=== PATIENT | male | born 1970 | race Caucasian/White ===

== ENCOUNTER 2021-06-27 10:23 | Outpatient (REF) | payer OTHER, SELFPAY ==
[2021-06-27 11:42] LABS: MANUAL DIFF FLAG NO
[2021-06-27 11:49] LABS: Basophils Percent Auto 0.7 % (0-2); Eosinophils Absolute Auto 0.1 X10*3/uL (0.0-0.4); Eosinophils Percent Auto 2.5 % (0-4); Hematocrit 43.4 % (42-52); Hemoglobin 14.2 g/dl (14.0-18.0); Imm Gran Abs Auto 0.01 X10*3/uL (0.00-0.03); Imm Gran Pct Auto 0.2 % (0.0-0.4); Lymphocytes Absolute Auto 1.1 X10*3/uL (1.2-4.9); Lymphocytes Percent Auto 28.4 % (20-40); Mean Corpuscular HGB Conc 32.7 g/dl (31.0-36.0); Mean Corpuscular Hemoglobin 28.9 pg (27.0-33.0); Mean Corpuscular Volume 88.2 fL (80-98); Mean Platelet Volume 9.8 fL (9.4-12.4); Monocytes Absolute Auto 0.3 X10*3/uL (0.1-1.2); Monocytes Percent Auto 6.2 % (2-11); Neutrophils Absolute Auto 2.5 X10*3/uL (2.0-8.3); Platelet Count 224 X10*3/uL (160-400); Red Blood Count 4.92 X10*6/uL (4.60-5.80)
[2021-06-27 11:56] LABS: Estimated Average Glucose 117 mg/dL; Hemoglobin A1c % 5.7 %
[2021-06-27 12:13] LABS: Alanine Aminotransferase 21 U/L (0-40); Albumin Level 4.2 g/dL (3.5-5.0); Alkaline Phosphatase 59 U/L (39-117); Anion Gap 11 (12-20); Aspartate Amino Transferase 19 U/L (5-37); Bilirubin Total 0.5 mg/dL (0.0-1.0); Blood Urea Nitrogen 9 mg/dL (9-16); C Reactive Protein 0.03 mg/dL (< or = 0.50); Carbon Dioxide 26 mmol/L (22-29); Chloride 107 mmol/L (96-108); Cholesterol 211 mg/dL; Estimated Glomerular Filt Rate > 60; Glucose Random 107 mg/dL (60-115); HDL Cholesterol 46 mg/dL; LDL Cholesterol Calculated 145 mg/dl; Potassium 4.5 mmol/L (3.3-5.1); Sodium 139 mmol/L (135-145); Total Protein 6.6 g/dL (6.5-8.0); Triglycerides 100 mg/dL
[2021-06-27 12:21] LABS: Free T4 (Free Thyroxine) 0.94 ng/dL (0.71-1.85); Prostate Specific Antigen Scr 0.51 ng/mL (<0.05-4.0); Thyroid Stimulating Hormone 2.07 uIU/mL (0.32-4.0)
[2021-06-27 12:41] LABS: Erythrocyte Sedimentation Rate 5 MM/HR (0-15)
[2021-06-27 13:17] LABS: Folate 12.4 ng/mL (> or = 4.0); Vitamin B12 436 pg/mL (200-900)
== END 2021-06-27 10:24 | disposition home or self-care (01) ==
LOC: HO.LAB 10:23
PROVIDERS: PCP Internal Medicine; Visit Provider Internal Medicine
DX: Z12.5 Encounter for screening for malignant neoplasm of prostate (principal); E78.00 Pure hypercholesterolemia, unspecified; K21.9 Gastro-esophageal reflux disease without esophagitis
CPT/HCPCS: 36415; 80053; 80061; 82607; 82746; 83036; 84153; 84439; 84443; 85025; 85652; 86140

== ENCOUNTER 2021-08-10 16:16 | Outpatient (REF) | payer OTHER, SELFPAY ==
[2021-08-10 17:52] LABS: MANUAL DIFF FLAG NO
[2021-08-10 18:00] LABS: Basophils Percent Auto 0.8 % (0-2); Eosinophils Absolute Auto 0.1 X10*3/uL (0.0-0.4); Eosinophils Percent Auto 1.5 % (0-4); Hemoglobin 14.6 g/dl (14.0-18.0); Imm Gran Abs Auto 0.01 X10*3/uL (0.00-0.03); Imm Gran Pct Auto 0.2 % (0.0-0.4); Lymphocytes Absolute Auto 1.2 X10*3/uL (1.2-4.9); Lymphocytes Percent Auto 24.3 % (20-40); Mean Corpuscular Hemoglobin 29.6 pg (27.0-33.0); Mean Corpuscular Volume 87.2 fL (80-98); Monocytes Absolute Auto 0.3 X10*3/uL (0.1-1.2); Monocytes Percent Auto 7.2 % (2-11); Neutrophils Absolute Auto 3.1 X10*3/uL (2.0-8.3); Platelet Count 237 X10*3/uL (160-400); Red Blood Count 4.93 X10*6/uL (4.60-5.80); Red Cell Distribution Width 12.3 % (11.0-16.0); White Blood Count 4.7 X10*3/uL (4.8-10.8)
[2021-08-10 18:12] LABS: Alanine Aminotransferase 22 U/L (0-40); Albumin Level 4.6 g/dL (3.5-5.0); Alkaline Phosphatase 69 U/L (39-117); Anion Gap 12 (12-20); Aspartate Amino Transferase 18 U/L (5-37); Bilirubin Total 0.6 mg/dL (0.0-1.0); Blood Urea Nitrogen 13 mg/dL (9-16); Calcium 10.1 mg/dL (8.4-10.2); Carbon Dioxide 29 mmol/L (22-29); Chloride 103 mmol/L (96-108); Estimated Glomerular Filt Rate > 60; Glucose Random 110 mg/dL (60-115); Potassium 4.6 mmol/L (3.3-5.1); Sodium 139 mmol/L (135-145); Total Protein 7.3 g/dL (6.5-8.0)
== END 2021-08-10 16:17 | disposition home or self-care (01) ==
LOC: HO.LAB 16:16
PROVIDERS: PCP Internal Medicine; Visit Provider Internal Medicine
DX: B35.6 Tinea cruris (principal)
CPT/HCPCS: 36415; 80053; 85025

== ENCOUNTER 2021-11-17 10:15 | Day surgery (SDC) | payer OTHER, SELFPAY ==
--- NOTE | 2021-11-15 13:30 | P.CONAN_ITS ---
Documented by User: Regla Domínguez NP 11/15/21 13:31 HPI - Anesthesia Eval Consult details Narrative: 51yo M for Colonoscopy PMFSH Active Problems Active Problems: All Active Problems (Updated 08/22/21 @ 09:55 by Lala Parada MD) Scrotal rash (Acute) Plantar wart of left foot (Acute) Eczema (Acute) Generalized anxiety disorder (Acute) Tinea cruris (Acute) Hip pain, right (Acute) Colon cancer screening (Acute) Allergic rhinitis (Acute) GERD (gastroesophageal reflux disease) (Acute) Patellofemoral arthritis (Acute) Insomnia (Acute) Hypercholesterolemia (Acute) Past Medical History Medical History (Updated 11/17/21 @ 10:52 by Brielle Miller MD) Allergic rhinitis Arrhythmia Bradycardia GERD (gastroesophageal reflux disease) Hypercholesterolemia Insomnia Irritable bowel syndrome Mitral valve prolapse Reactive airway disease Tinnitus Vitamin D deficiency Family History Family History Father Skin cancer Mother No problems noted. Brother Bipolar disorder Brother Substance abuse Sister No problems noted. Sister No problems noted. Paternal Grandmother Colon cancer Paternal Aunt Colon cancer Paternal Grandfather Stomach cancer Social History Social History Housing: Apartment Alcohol intake: current Alcohol intake frequency: holidays/special occasions only Patient Tobacco Use Status: Never used Tobacco e-Cigarette/Vaping Use: Never Used Second Hand Smoke Exposure: No Use of substances other than those prescribed or required for medical reasons: No Are you DNR?: No Advance Directives: No Advance Directives Information Provided: Yes Recently lost weight without trying: No Nutrition Risks: No Nutritional Risk service: No Current occupational status: employed Meds Allergies Allergy/AdvReac Type Severity Reaction Status Date / Time penicillin V Allergy Severe Rash Verified 08/16/21 12:27 amoxicillin [AMOXICILLIN] Allergy Unknown RASH Verified 08/16/21 12:27 erythromycin base Allergy Unknown JOINTS PAIN Verified 08/16/21 12:27 [ERYTHROMYCIN BASE] Erythromycin Allergy Severe Rash Uncoded 06/19/21 18:06 Home Medications Medication Instructions Recorded Confirmed Last Taken Type cetirizine 10 mg tablet (Zyrtec) 10 mg PO DAILY PRN 06/19/21 06/19/21 Unknown History cholecalciferol (vitamin D3) 50 50 mcg PO DAILY 06/19/21 06/19/21 Unknown History mcg (2,000 unit) capsule famotidine 20 mg tablet (Acid 20 mg PO BEDTIME 06/19/21 06/19/21 Unknown History Counter Supervisor (famotidine)) fluticasone propionate 50 2 spray INTRANASAL DAILY 06/19/21 06/19/21 Unknown History mcg/actuation nasal spray,suspension melatonin 3 mg capsule 3 mg PO BEDTIME PRN 06/19/21 06/19/21 Unknown History multivitamin 1 tab PO DAILY 06/19/21 06/19/21 Unknown History Exam Exam Date and Time: November 15, 2021 1330 Pertinent Lab Results Pertinent Lab Results: Laboratory Tests 08/10/21 08/10/21 16:36 16:36 WBC 4.7 L Hgb 14.6 Hct 43.0 Plt Count 237 Sodium 139 Potassium 4.6 Chloride 103 Carbon Dioxide 29 BUN 13 Creatinine 0.85 Assessment and Plan Assessment Anesthesia Assessment: Chart Reviewed Documented by User: Brielle Miller MD 11/17/21 10:53 [facility] Active Problems Active Problems: All Active Problems (Updated 08/22/21 @ 09:55 by Lala Parada MD) Scrotal rash (Acute) Plantar wart of left foot (Acute) Eczema (Acute) Generalized anxiety disorder (Acute) Tinea cruris (Acute) Hip pain, right (Acute) Colon cancer screening (Acute) Allergic rhinitis (Acute) GERD (gastroesophageal reflux disease) (Acute) Patellofemoral arthritis (Acute) Insomnia (Acute) Hypercholesterolemia (Acute) 'Reactive airways disease'- no formal diagnosis of asthma. No inhalers Past Medical History Medical History (Updated 11/17/21 @ 10:52 by Brielle Miller MD) Allergic rhinitis Arrhythmia Bradycardia GERD (gastroesophageal reflux disease) Hypercholesterolemia Insomnia Irritable bowel syndrome Mitral valve prolapse Reactive airway disease Tinnitus Vitamin D deficiency Family History Family History Father Skin cancer Mother No problems noted. Brother Bipolar disorder Brother Substance abuse Sister No problems noted. Sister No problems noted. Paternal Grandmother Colon cancer Paternal Aunt Colon cancer Paternal Grandfather Stomach cancer Family history of problems with anesthesia: No Surgical History History of Problems with Anesthesia: No Social History Social History Housing: Apartment Alcohol intake: current Alcohol intake frequency: holidays/special occasions only Patient Tobacco Use Status: Never used Tobacco e-Cigarette/Vaping Use: Never Used Second Hand Smoke Exposure: No Use of substances other than those prescribed or required for medical reasons: No Are you DNR?: No Advance Directives: No Advance Directives Information Provided: Yes Recently lost weight without trying: No Nutrition Risks: No Nutritional Risk service: No Current occupational status: employed Meds Allergies Allergy/AdvReac Type Severity Reaction Status Date / Time penicillin V Allergy Severe Rash Verified 08/16/21 12:27 amoxicillin [AMOXICILLIN] Allergy Unknown RASH Verified 08/16/21 12:27 erythromycin base Allergy Unknown JOINTS PAIN Verified 08/16/21 12:27 [ERYTHROMYCIN BASE] Erythromycin Allergy Severe Rash Uncoded 06/19/21 18:06 Home Medications Medication Instructions Recorded Confirmed Last Taken Type cetirizine 10 mg tablet (Zyrtec) 10 mg PO DAILY PRN 06/19/21 06/19/21 Unknown History cholecalciferol (vitamin D3) 50 50 mcg PO DAILY 06/19/21 06/19/21 Unknown History mcg (2,000 unit) capsule famotidine 20 mg tablet (Acid 20 mg PO BEDTIME 06/19/21 06/19/21 Unknown History Counter Supervisor (famotidine)) fluticasone propionate 50 2 spray INTRANASAL DAILY 06/19/21 06/19/21 Unknown History mcg/actuation nasal spray,suspension melatonin 3 mg capsule 3 mg PO BEDTIME PRN 06/19/21 06/19/21 Unknown History multivitamin 1 tab PO DAILY 06/19/21 06/19/21 Unknown History Exam Height,Weight and Vital Signs: Height 6 ft Weight 72.575 kg Vital Signs Temp Pulse Resp BP Pulse Ox 11/17/21 10:37 99.3 F 125 H 16 154/102 H 99 Airway Mallampati Class: I TM Dist: >3cm Neck ROM: Full Loose/Missing/Broken Teeth: No Heart: RRR Lungs: CTAB Assessment and Plan Assessment Anesthesia Assessment: Anesthesia Plan Discussed Final Anesthetic Review Family History of Problems with Anesthesia: No History of Problems with Anesthesia: No NPO: Yes ASA Class: II Final Preanesthetic Review: No Changes in Pt Med Stat, Meds/Allgs Chart Reviewed, Consent Obtained/Reviewed and Anes Risks/Benef Reviewed Patient Risk: Intermediate Procedure Risk: Low Assessment/Block/Sedation in SS: Assess/Block/Sedation-SS Anesthetic Plan Anesthetic Plan: MAC: Disposition: Standard PACU
[2021-11-17 10:26] VITALS: BMI 21.7
[2021-11-17 10:37] VITALS: BP 154/102; PULSE 125; RESP 16; TEMP 37.4; O2SAT 99
--- NOTE | 2021-11-17 10:37 | MHC.SHP ---
Pre-Procedural Eval Section A Date of Service: 11/17/21 Section B Chief Complaint: screening Details of Present Illness: see H&P Relevant Family History (Specify if Yes): No Relevant Social History: None Present Medications: see Short Stay Collaborative assessment Medical History: No relevant PMH History of Previous Operations: No relevant previous surgery Allergies: Allergies Allergy/AdvReac Type Severity Reaction Status Date / Time penicillin V Allergy Severe Rash Verified 08/16/21 12:27 amoxicillin [AMOXICILLIN] Allergy Unknown RASH Verified 08/16/21 12:27 erythromycin base Allergy Unknown JOINTS PAIN Verified 08/16/21 12:27 [ERYTHROMYCIN BASE] Erythromycin Allergy Severe Rash Uncoded 06/19/21 18:06 Review of Systems Sugical H&P ROS: Negative: Constitution, Cardiovascular, Respiratory, Neurological, Psychiatric, Hem-Onc, Allergic/Immunologic, Gastrointestinal, Genitourinary, Musculoskeletal, Integumentary, Endocrine and Eyes/Ears/Nose/Throat Exam Surgical H&P Exam: Normal: HEENT, Normal: Heart, Normal: Lungs, Normal: Extremities, Normal: Abdomen, Normal: Skin and Normal: Neurological Plan Diagnosis/Plan: Unchanged I have reviewed the history and physical and performed a pertinent physical examination on my patient. No changes have occurred unless specified.
[2021-11-17] MEDS: Sodium Phosphate,Mono-Dibasic 133 ML ENEMA PR ×2 (10:49→11:01)
--- NOTE | 2021-11-17 10:57 | PC.NURSE ---
AURA 1ST FLEET ORDERED. LIQUID BROWN OUTPUT.
--- NOTE | 2021-11-17 11:04 | PC.NURSE ---
2ND FLEET ENEMA GIVEN AURA WELL. LEFT LATERAL SIDE. AWAITING FOR RESULTS. NO LONGER TAKES ANTIBIOTICS BECAUSE OF MITRAL VALVE PROLAPSE PER PATIENT
--- NOTE | 2021-11-17 11:08 | PC.NURSE ---
CLEAR OUTPUT RESULTS WITH SECOND FLEET ENEMA GIVEN.
[2021-11-17] MEDS: Lactated Ringers 1,000 ML 100 ML IVCONT (11:16)
[2021-11-17 11:50] VITALS: BP 92/57; PULSE 97; RESP 16; TEMP 36.2; O2SAT 98
--- NOTE | 2021-11-17 11:56 | PM.OP ---
Brief Operative Note Date of Service: 11/17/21 Pre-op diagnosis: screening, rectal pain Post-op diagnosis: same Procedure: colonosocopy Surgeon: Nicho Foss Anesthesia: MAC Was an Custom Furrier used for this Procedure?: No Estimated blood loss (mL): 2 Pathology: other (bxs ti and sigmoid) Condition: stable Disposition: PACU
--- NOTE | 2021-11-17 12:03 | OP_ITS ---
SURGEON: Nicho Foss MD INDICATIONS: Rectal pain and colon cancer screening. PREOPERATIVE DIAGNOSIS: POSTOPERATIVE DIAGNOSIS: PROCEDURE PERFORMED: Colonoscopy to the terminal ileum with biopsy. ESTIMATED BLOOD LOSS: COMPLICATIONS: ANESTHESIA: Monitored anesthesia care. ASSISTANTS: SPECIMENS: DESCRIPTION OF PROCEDURE: History and physical performed. The risks and benefits of the procedure were explained to the patient. Informed consent was obtained. The patient was placed in the left lateral decubitus position. A digital rectal exam was performed and was found to be normal. The Olympus pediatric video colonoscope was introduced into the rectum and advanced to the cecum without difficulty. The cecum was identified by transillumination, palpation, and identification of ileocecal valve. Examination was performed. Scope was removed. He tolerated the procedure well and was taken to recovery area in stable condition. FINDINGS: The terminal ileum was examined and appeared normal. The visualized colonic mucosa was within normal limits without evidence of masses or ulcers. No polyps were identified. Retroflexed examination was normal. Random biopsies were obtained from the terminal ileum and sigmoid. IMPRESSION: Normal colonoscopy. RECOMMENDATIONS: 1. Follow up the biopsy results. 2. Repeat colonoscopy is recommended in 10 years for average risk individuals. MD NEDA Cortés/SOY / [id number]
[2021-11-17 12:05] VITALS: BP 113/81; PULSE 91; RESP 17; TEMP 36.5; O2SAT 98
== END 2021-11-17 13:11 | disposition home or self-care (01) ==
PROVIDERS: PCP Internal Medicine; Visit Provider Internal Medicine Gastroenterology
PROC: 0DJD8ZZ Inspection of Lower Intestinal Tract, Via Natural or Artificial Opening Endoscopic (ICD-10-PCS; CPT 45378; principal; 2021-11-17 11:20)
DX: Z12.11 Encounter for screening for malignant neoplasm of colon (principal); K62.89 Other specified diseases of anus and rectum; K21.9 Gastro-esophageal reflux disease without esophagitis; D72.819 Decreased white blood cell count, unspecified; F41.9 Anxiety disorder, unspecified; Z79.899 Other long term (current) drug therapy
CPT/HCPCS: 45380; 88305

== ENCOUNTER 2023-08-09 10:04 | Outpatient (REF) | payer OTHER, SELFPAY ==
[2023-08-09 10:15] LABS: MANUAL DIFF FLAG NO
[2023-08-09 10:49] LABS: Eosinophils Absolute Auto 0.1 X10*3/uL (0.0-0.4); Eosinophils Percent Auto 3.4 % (0-4); Hematocrit 44.8 % (42.0-52.0); Imm Gran Abs Auto 0.01 X10*3/uL (0.00-0.03); Imm Gran Pct Auto 0.2 % (0.0-0.4); Lymphocytes Absolute Auto 1.5 X10*3/uL (1.2-4.9); Lymphocytes Percent Auto 36.6 % (20-40); Mean Corpuscular HGB Conc 33.5 g/dl (31.0-36.0); Mean Corpuscular Hemoglobin 30.3 pg (27.0-33.0); Mean Corpuscular Volume 90.5 fL (80.0-98.0); Mean Platelet Volume 9.8 fL (9.4-12.4); Monocytes Absolute Auto 0.3 X10*3/uL (0.1-1.2); Neutrophils Absolute Auto 2.1 x10*3/uL (2.0-8.3); Neutrophils Percent Auto 50.8 % (45-73); Platelet Count 235 X10*3/uL (160-400); Red Blood Count 4.95 X10*6/uL (4.60-5.80); Red Cell Distribution Width 12.4 % (11.0-16.0); White Blood Count 4.1 X10*3/uL (4.8-10.8)
[2023-08-09 10:59] LABS: Estimated Average Glucose 105 mg/dL; Hemoglobin A1c % 5.3 % (<6.0)
[2023-08-09 11:23] LABS: Alanine Aminotransferase 18 U/L (0-40); Albumin Level 4.2 g/dL (3.5-5.0); Alkaline Phosphatase 53 U/L (39-117); Anion Gap 8 (12-20); Aspartate Amino Transferase 18 U/L (5-37); Bilirubin Total 0.4 mg/dL (0.0-1.0); Blood Urea Nitrogen 15 mg/dL (9-16); Calcium 9.7 mg/dL (8.4-10.2); Carbon Dioxide 27 mmol/L (22-29); Chloride 110 mmol/L (96-108); Cholesterol 228 mg/dL (<200); Estimated Glomerular Filt Rate > 60; Glucose Random 104 mg/dL (60-115); HDL Cholesterol 50 mg/dL (>40); LDL Cholesterol Calculated 161 mg/dL (<100); Potassium 4.6 mmol/L (3.3-5.1); Sodium 140 mmol/L (135-145); Total Protein 6.8 g/dL (6.5-8.0); Triglycerides 88 mg/dL (<150)
[2023-08-09 11:46] LABS: Free T4 (Free Thyroxine) 0.82 ng/dL (0.71-1.85); Thyroid Stimulating Hormone 2.99 uIU/mL (0.32-4.0)
[2023-08-09 11:48] LABS: Folate 12.1 ng/mL (> or = 4.0); Vitamin B12 320 pg/mL (200-900)
== END 2023-08-09 10:05 | disposition home or self-care (01) ==
LOC: HO.LAB 10:04
PROVIDERS: PCP Internal Medicine; Visit Provider Internal Medicine
DX: Z12.5 Encounter for screening for malignant neoplasm of prostate (principal); E78.00 Pure hypercholesterolemia, unspecified; K21.9 Gastro-esophageal reflux disease without esophagitis; R73.02 Impaired glucose tolerance (oral)
CPT/HCPCS: 36415; 80053; 80061; 82607; 82746; 83036; 84153; 84439; 84443; 85025

== ENCOUNTER 2023-09-24 12:49 | Outpatient (AMB) | payer OTHER, SELFPAY ==
[2023-09-24 12:50] VITALS: BP 124/86; PULSE 91; O2SAT 97; BMI 22.6
--- NOTE | 2023-09-24 12:50 | MHC.PC.OV ---
Vital Signs 09/24/23 12:50 Height 6 ft Weight 167 lb BMI 22.6 BP 124/86 Blood Pressure Location Lt brachial Position Sitting Pulse 91 Pulse Source Pulse Oximeter Pulse Oximetry (%) 97 Oxygen Delivery Method Room Air Intake Visit Reasons: PE Intake Note: Patient is here today for a physical. Commission Associate Required: No Allergies penicillin V Allergy (Severe, Verified 09/24/23 12:50) Rash amoxicillin [AMOXICILLIN] Allergy (Unknown, Verified 09/24/23 12:50) RASH erythromycin base [ERYTHROMYCIN BASE] Allergy (Unknown, Verified 09/24/23 12:50) JOINTS PAIN Erythromycin Allergy (Severe, Uncoded 09/24/23 12:50) Rash Medication List - Last Reconciled 09/24/23 by Lala Parada MD cetirizine (Zyrtec) 10 mg PO DAILY PRN cholecalciferol (vitamin D3) 50 mcg PO BID cyclobenzaprine 10 mg PO DAILY PRN fluticasone propionate 50 mcg/actuation 2 sprays intranasal DAILY multivitamin 1 tab PO DAILY Tobacco use date assessed: 09/24/23 Dental Screening Dental Screen Date: 09/24/23 Did you have a dental visit in the last 12 months?: Yes Did you have a dental problem in the last 6 months where you did not have access to dental care?: No Was dental information given to patient?: Patient has dentist HPI PE HPI Details 53-year-old male with GERD hypercholesterolemia impaired glucose tolerance coming in for physical exam last seen in September 2022. Patient is up-to-date with colonoscopy. Patient was referred to the housekeeping assistant but I do not see any notes- does go for allergy shots started in December,. [facility] Medical History (Updated 09/14/22 @ 17:23 by Lala Parada MD) Bradycardia Arrhythmia Mitral valve prolapse Tinea cruris Hip pain, right Colon cancer screening Tinnitus Allergic rhinitis GERD (gastroesophageal reflux disease) Reactive airway disease Insomnia Vitamin D deficiency Irritable bowel syndrome Hypercholesterolemia Family History Father Skin cancer Mother No problems noted. Brother Bipolar disorder Brother Substance abuse Sister No problems noted. Sister No problems noted. Paternal Grandmother Colon cancer Paternal Aunt Colon cancer Paternal Grandfather Stomach cancer Social History (Updated 09/24/23 @ 13:29 by Lala Parada MD) Housing: Apartment Alcohol intake: current Alcohol intake frequency: holidays/special occasions only Patient Tobacco Use Status: Never used Tobacco e-Cigarette/Vaping Use: Never Used Second Hand Smoke Exposure: No service: No Current occupational status: employed Cognitive needs: No Hearing needs: No Vision needs: No Questionnaire PHQ-9 Over the last 2 weeks, how often have you been bothered by any of the following problems? 1. Little interest or pleasure in doing things: not at all 2. Feeling down, depressed, or hopeless: not at all 3. Trouble falling or staying asleep, or sleeping too much: not at all 4. Feeling tired or having little energy: not at all 5. Poor appetite or overeating: not at all 6. Feeling bad about yourself - or that you are a failure or have let yourself or your family down: not at all 7. Trouble concentrating on things, such as reading the newspaper or watching television: not at all 8. Moving or speaking so slowly that other people could have noticed. Or the opposite - being so fidgety or restless that you have been moving around a lot more than usual: not at all 9. Thoughts that you would be better off or of hurting yourself in some way: not at all Total score: 0 Depression Screening Interpretation: Negative Depression Screening Done: Yes Source: Developed by Drs. Mauri Munoz, Patria Sousa, Demetrio Chacon and colleagues, with an educational antoinette from [employer]. Thrive Questionnaire Date Thrive assessed: 09/24/23 I am a: Patient What is your living situation today?: I have a steady place to live Within the past 12 months, did the food you bought not last and you didn't have the money to get more?: Never true Within the past 12 months, did you worry whether your food would run out before you got money to buy more?: Never true Do you have trouble paying for medicines?: No Do you have trouble getting transportation to medical appointments?: No Do you have trouble paying your heating and electricity bill?: No Do you have trouble taking care of your child, family member or friend?: No Do you have trouble with day-to-day activities such as bathing, preparing meals, shopping, managing finances, etc.?: No Are you currently unemployed and looking for a job?: No Are you interested in more education?: No AUDIT C Alcohol Use Questionnaire (AUDIT-C) 1. How often do you have a drink containing alcohol?: 2-4 times a month 2. How many drinks containing alcohol do you have on a typical day when you are drinking?: 1 or 2 3. How often do you have six or more drinks on one occasion?: Never Total Score: 2 MARITZA-7 AMB Questionnaire MARITZA-7 Date MARITZA - 7 assessed: 09/24/23 Feeling nervous, anxious, or on edge: 0 = Not at all Not being able to stop or control worryin = Not at all Worrying too much about different things: 0 = Not at all Trouble relaxin = Not at all Being so restless that it is hard to sit still: 0 = Not at all Becoming easily annoyed or irritable: 0 = Not at all Feeling afraid as if something awful might happen: 0 = Not at all Total MARITZA-7 score (0-4 normal; 5-9 mild; 10-14 moderate; 15-21 severe): 0 Source: Developed by Drs. Mauri Munoz, Patria Sousa, Demetrio Chacon and colleagues, with an educational antoinette from [employer]. Review of Systems Const Denies poor appetite and Denies weakness Eyes Denies no additional complaints ENT Reports Normal hearing present, Denies dizziness, Denies nasal congestion, Denies tinnitus and Denies sore throat Card Denies chest pain, Denies syncope, Denies rapid heart rate and Denies dyspnea Resp Denies cough and Denies dyspnea GI Denies change in stool character, Reports constipation, Denies diarrhea, Denies nausea and Denies vomiting Denies dysuria and Denies urinary frequency Neuro Reports Normal hearing present, Denies confusion, Denies dizziness, Denies syncope and Denies weakness Psych Denies confusion Physical exam (Primary Care) Vital Signs: Last Vital Signs Pulse 91 09/24/23 12:50 BP 124/86 09/24/23 12:50 Pulse Ox 97 09/24/23 12:50 Oxygen Delivery Method Room Air 09/24/23 12:50 BMI result Body Mass Index 22.6 Tobacco/Smoking Status: Tobacco use Status Tobacco use date assessed 09/24/23 09/24/23 12:52 Patient Tobacco Use Status Never used Tobacco 09/24/23 13:29 e-Cigarette/Vaping Use Never Used 09/24/23 13:29 PHQ-9: PHQ-9 Score PHQ-9: Total score 0 09/24/23 13:27 Depression Screening Interpretation: Negative Thrive Assessment: Date of Thrive Assessment Date Thrive assessed 09/24/23 09/24/23 12:52 Const General: alert and awake; No confusion Orientation/consciousness: No confusion HENMT Head: Yes normocephalic Ears: external ears normal and TM's normal bilaterally Face and sinus: Yes normal facial exam Mouth: moist mucous membranes Throat: Yes tonsils normal Eyes Conjunctivae: conjunctivae normal Pupils: Equal, round and reactive pupils present and Pupil accommodation reflex normal Direct Ophthalmoscopy: normal light reflex Neck Neck: No lymphadenopathy Thyroid: Thyroid normal Chest Chest palpation & inspection: normal inspection of the chest Resp Effort & Inspection: normal respiratory effort and no audible wheezes Auscultation: clear to auscultation bilaterally, no crackles, no wheezes and lung sounds not diminished Cardio Rate: regular rate Rhythm: regular rhythm Peripheral pulses: radial pulses present and dorsalis pedis present GI Palpation (GI): no masses Auscultation: normal bowel sounds and normoactive bowel sounds Rectal Exam - Male: Yes deferred Skin General skin exam: no rashes or lesions noted Rashes: no rashes Neuro General: deep tendon reflexes 2+ bilaterally and No confusion Cranial nerves: Yes Equal, round and reactive pupils present, Yes Midline tongue present, Yes Normal hearing present and Yes Ability to bilaterally elevate shoulders present Cognition (Neuro): normal cognition Gait exam (Neuro): Normal gait present Motor exam (neuro): 5/5 motor strength present throughout Deep tendon reflexes (DTR's): Right brachioradialis reflex intensity grade: 2+, Left brachioradialis reflex intensity grade: 2+, Right patellar reflex intensity grade: 2+ and Left patellar reflex intensity grade: 2+ Extrem General: No edema Immunizations tetanus-diphtheria toxoids-Td 2 Lf unit-2 Lf unit/0.5 mL IM suspension Performing Provider: Lala Parada MD Performing Location: [facility] Administered by: ZULEYKA Lopez on 09/24/23 13:49 Dose Route Admin Location Dispensed Lot Number Expiration Date NDC [place] 0.5 mL IM Left Deltoid 0.5 mL [id number] 04/06/24 [address]-4 [employer] VIS Given Date VIS Provided VIS Publication Date 09/24/23 Single Vaccine 21 Eligibility Eligibility Date Funding Source Not VFC Eligible 09/24/23 State funds Assessment and Plan Assessment & Plan (1) Annual physical exam: Code(s): Z00.00 - Encounter for general adult medical examination without abnormal findings (2) GERD (gastroesophageal reflux disease): Code(s): K21.9 - Gastro-esophageal reflux disease without esophagitis Qualifiers: Esophagitis presence: without esophagitis Qualified Code(s): K21.9 - Gastro-esophageal reflux disease without esophagitis Plan: Avoid the foods that causes that usually spicy foods, tomato products, juices, coffee, soda and foods that your sensitive to. After eating do not lie down, allow 3-4 hours before in lie down. And keep the head of bed above 30 degrees to avoid the acid from going up. (3) Hypercholesterolemia: Code(s): E78.00 - Pure hypercholesterolemia, unspecified Plan: Avoid fried foods, chicken skin, eggs, butter margarine, pastries and meat. Be it pork or beef they have a lot of cholesterol LDL goal of less than 130 and triglyceride of less than 150 (4) Impaired glucose tolerance: Code(s): R73.02 - Impaired glucose tolerance (oral) Plan: Decrease the amount of carbohydrate intake, pasta, bread, rice and potatoes are all sugar and that is aside from all the sweet stuff, remember that fruits are good but they are Sweet also. Orders: Orders Comprehensive Met. Panel 6 Months E78.00 - Pure hypercholesterolemia, unspecified Lipid Panel 6 Months E78.00 - Pure hypercholesterolemia, unspecified Hemoglobin A1c 6 Months E78.00 - Pure hypercholesterolemia, unspecified Td State Immunization Today Z23 - Encounter for immunization Coding Level of Care Code Est Pt Prev Care 40-64y(66177) Diagnoses Annual physical exam Z00.00 Gastroesophageal reflux disease without esophagitis K21.9 Esophagitis presence: without esophagitis Hypercholesterolemia E78.00 Impaired glucose tolerance R73.02
== END 2023-09-24 13:56 | disposition home or self-care (01) ==
PROVIDERS: Visit Provider Internal Medicine
DX: Z00.00 Encounter for general adult medical examination without abnormal findings (principal); K21.9 Gastro-esophageal reflux disease without esophagitis; E78.00 Pure hypercholesterolemia, unspecified; R73.02 Impaired glucose tolerance (oral); Z23 Encounter for immunization
CPT/HCPCS: 90471; 90714; 99396

== ENCOUNTER 2024-03-20 10:19 | Outpatient (REF) | payer OTHER, SELFPAY ==
[2024-03-20 11:09] LABS: Estimated Average Glucose 114 mg/dL; Hemoglobin A1c % 5.6 % (<6.0)
[2024-03-20 11:51] LABS: Alanine Aminotransferase 20 U/L (0-40); Albumin Level 4.3 g/dL (3.5-5.0); Alkaline Phosphatase 57 U/L (39-117); Anion Gap 10 (12-20); Aspartate Amino Transferase 18 U/L (5-37); Bilirubin Total 0.5 mg/dL (0.0-1.0); Blood Urea Nitrogen 13 mg/dL (9-16); Calcium 9.7 mg/dL (8.4-10.2); Carbon Dioxide 27 mmol/L (22-29); Chloride 109 mmol/L (96-108); Cholesterol 229 mg/dL (<200); Estimated Glomerular Filt Rate > 60; Glucose Random 107 mg/dL (60-115); HDL Cholesterol 49 mg/dL (>40); LDL Cholesterol Calculated 164 mg/dL (<100); Potassium 4.7 mmol/L (3.3-5.1); Sodium 141 mmol/L (135-145); Triglycerides 83 mg/dL (<150)
== END 2024-03-20 10:20 | disposition home or self-care (01) ==
LOC: HO.LAB 10:19
PROVIDERS: PCP Internal Medicine; Visit Provider Internal Medicine
DX: E78.00 Pure hypercholesterolemia, unspecified (principal)
CPT/HCPCS: 36415; 80053; 80061; 83036

== ENCOUNTER 2024-03-26 12:56 | Outpatient (AMB) | payer OTHER, SELFPAY ==
[2024-03-26 12:58] VITALS: BP 122/86; PULSE 90; O2SAT 98; BMI 22.0
--- NOTE | 2024-03-26 12:58 | MHC.PC.OV ---
Vital Signs 03/26/24 12:58 Height 6 ft Weight 162 lb 0.8 oz BMI 22.0 BP 122/86 Blood Pressure Location Lt brachial Position Sitting Pulse 90 Pulse Source Pulse Oximeter Pulse Oximetry (%) 98 Oxygen Delivery Method Room Air Intake Visit Reasons: 6 month f/u Intake Note: Patient is here to follow up on 6 months Manager Regulatory Required: No Allergies penicillin V Allergy (Severe, Verified 03/26/24 12:59) Rash amoxicillin [AMOXICILLIN] Allergy (Unknown, Verified 03/26/24 12:59) RASH erythromycin base [ERYTHROMYCIN BASE] Allergy (Unknown, Verified 03/26/24 12:59) JOINTS PAIN Erythromycin Allergy (Severe, Uncoded 03/26/24 12:59) Rash Tobacco use date assessed: 03/26/24 Dental Screening Dental Screen Date: 03/26/24 Did you have a dental visit in the last 12 months?: Yes Did you have a dental problem in the last 6 months where you did not have access to dental care?: No Was dental information given to patient?: Patient has dentist HPI 6 month f/u HPI Details 53-year-old male with GERD hypercholesterolemia impaired glucose tolerance last seen for physical exam in September 2023. Patient is here for follow-up. Colonoscopy was done in November 2021. Review of the notes has followed up with Allergy and immunology for allergic rhinitis eczema and dermatitis and went for immunotherapy injections patient on Xyzal and Flonase. but the patient takes zyrted still. has desensitization shots Q week now [facility] Medical History (Updated 09/14/22 @ 17:23 by Lala Parada MD) Bradycardia Arrhythmia Mitral valve prolapse Tinea cruris Hip pain, right Colon cancer screening Tinnitus Allergic rhinitis GERD (gastroesophageal reflux disease) Reactive airway disease Insomnia Vitamin D deficiency Irritable bowel syndrome Hypercholesterolemia Family History Father Skin cancer Mother No problems noted. Brother Bipolar disorder Brother Substance abuse Sister No problems noted. Sister No problems noted. Paternal Grandmother Colon cancer Paternal Aunt Colon cancer Paternal Grandfather Stomach cancer Social History (Updated 09/24/23 @ 13:29 by Lala Parada MD) Housing: Apartment Alcohol intake: current Alcohol intake frequency: holidays/special occasions only Patient Tobacco Use Status: Never used Tobacco e-Cigarette/Vaping Use: Never Used Second Hand Smoke Exposure: No service: No Current occupational status: employed Cognitive needs: No Hearing needs: No Vision needs: No Questionnaire PHQ-9 Over the last 2 weeks, how often have you been bothered by any of the following problems? 1. Little interest or pleasure in doing things: not at all 2. Feeling down, depressed, or hopeless: not at all 3. Trouble falling or staying asleep, or sleeping too much: not at all 4. Feeling tired or having little energy: not at all 5. Poor appetite or overeating: not at all 6. Feeling bad about yourself - or that you are a failure or have let yourself or your family down: not at all 7. Trouble concentrating on things, such as reading the newspaper or watching television: not at all 8. Moving or speaking so slowly that other people could have noticed. Or the opposite - being so fidgety or restless that you have been moving around a lot more than usual: not at all 9. Thoughts that you would be better off or of hurting yourself in some way: not at all Total score: 0 Depression Screening Interpretation: Negative Depression Screening Done: Yes Source: Developed by Drs. Mauri Munoz, Demetrio Chávez and colleagues, with an educational antoinette from [employer]. Thrive Questionnaire Date Thrive assessed: 03/26/24 AUDIT C Alcohol Use Questionnaire (AUDIT-C) 1. How often do you have a drink containing alcohol?: 2-4 times a month 2. How many drinks containing alcohol do you have on a typical day when you are drinking?: 1 or 2 3. How often do you have six or more drinks on one occasion?: Never Total Score: 2 MARITZA-7 AMB Questionnaire MARITZA-7 Date MARITZA - 7 assessed: 03/26/24 Source: Developed by Drs. Mauri Munoz, Demetrio Chávez and colleagues, with an educational antoinette from [employer]. Physical exam (Primary Care) Vital Signs: Last Vital Signs Pulse 90 03/26/24 12:58 BP 122/86 03/26/24 12:58 Pulse Ox 98 03/26/24 12:58 Oxygen Delivery Method Room Air 03/26/24 12:58 BMI result Body Mass Index 22.0 Tobacco/Smoking Status: Tobacco use Status Tobacco use date assessed 03/26/24 03/26/24 13:00 Patient Tobacco Use Status Never used Tobacco 03/26/24 13:00 e-Cigarette/Vaping Use Never Used 03/26/24 13:00 PHQ-9: PHQ-9 Score PHQ-9: Total score 0 03/26/24 13:00 Depression Screening Interpretation: Negative Thrive Assessment: Date of Thrive Assessment Date Thrive assessed 03/26/24 03/26/24 13:00 Const General: alert; No acute distress Eyes Conjunctivae: conjunctivae normal Resp Auscultation: clear to auscultation bilaterally Cardio Rate: regular rate Rhythm: regular rhythm GI Inspection: Yes normal to inspection Extrem General: Yes normal to inspection and No edema Assessment and Plan Assessment & Plan (1) Allergic rhinitis: Code(s): J30.9 - Allergic rhinitis, unspecified Qualifiers: Allergic rhinitis trigger: unspecified Allergic rhinitis seasonality: seasonal Qualified Code(s): J30.2 - Other seasonal allergic rhinitis Plan: Patient follows up with Allergy and immunology placed on Xyzal and Flonase (2) Hypercholesterolemia: Code(s): E78.00 - Pure hypercholesterolemia, unspecified Plan: Avoid fried foods, chicken skin, eggs, butter margarine, pastries and meat. Be it pork or beef they have a lot of cholesterol LDL goal of less than 130 and triglyceride of less than 150 ASCVD risk calculator 4.5% in 10 years (3) GERD (gastroesophageal reflux disease): Code(s): K21.9 - Gastro-esophageal reflux disease without esophagitis Qualifiers: Esophagitis presence: without esophagitis Qualified Code(s): K21.9 - Gastro-esophageal reflux disease without esophagitis Plan: Avoid the foods that causes that usually spicy foods, tomato products, juices, coffee, soda and foods that your sensitive to. After eating do not lie down, allow 3-4 hours before in lie down. And keep the head of bed above 30 degrees to avoid the acid from going up. (4) Generalized anxiety disorder: Code(s): F41.1 - Generalized anxiety disorder Plan: Stable (5) Impaired glucose tolerance: Code(s): R73.02 - Impaired glucose tolerance (oral) Plan: Decrease the amount of carbohydrate intake, pasta, bread, rice and potatoes are all sugar and that is aside from all the sweet stuff, remember that fruits are good but they are Sweet also. Orders: Orders Comprehensive Met. Panel 6 Months R73.02 - Impaired glucose tolerance (oral) Hemoglobin A1c 6 Months R73.02 - Impaired glucose tolerance (oral) Complete Blood Count Auto Diff 6 Months R73.02 - Impaired glucose tolerance (oral) Free T4 (Free Thyroxine) 6 Months R73.02 - Impaired glucose tolerance (oral) Vitamin B12 and Folate 6 Months R73.02 - Impaired glucose tolerance (oral) Thyroid Stimulating Hormone 6 Months R73.02 - Impaired glucose tolerance (oral) Lipid Panel 6 Months E78.00 - Pure hypercholesterolemia, unspecified, R73.02 - Impaired glucose tolerance (oral) Prostate Specific Antigen Scr 6 Months R73.02 - Impaired glucose tolerance (oral) Coding Level of Care Code Est Pt Level 4 (04246) Diagnoses Seasonal allergic rhinitis, unspecified trigger J30.2 Allergic rhinitis trigger: unspecified Allergic rhinitis seasonality: seasonal Hypercholesterolemia E78.00 Gastroesophageal reflux disease without esophagitis K21.9 Esophagitis presence: without esophagitis Generalized anxiety disorder F41.1 Impaired glucose tolerance R73.02
== END 2024-03-26 13:30 | disposition home or self-care (01) ==
PROVIDERS: PCP Internal Medicine; Visit Provider Internal Medicine
DX: J30.2 Other seasonal allergic rhinitis (principal); E78.00 Pure hypercholesterolemia, unspecified; K21.9 Gastro-esophageal reflux disease without esophagitis; F41.1 Generalized anxiety disorder; R73.02 Impaired glucose tolerance (oral)
CPT/HCPCS: 99214

== ENCOUNTER 2024-10-08 09:45 | Outpatient (REF) | payer OTHER, SELFPAY ==
[2024-10-08 10:10] LABS: MANUAL DIFF FLAG NO
[2024-10-08 10:49] LABS: Basophils Percent Auto 1.2 % (0-2); Eosinophils Absolute Auto 0.1 X10*3/uL (0.0-0.4); Eosinophils Percent Auto 2.3 % (0-4); Hematocrit 43.6 % (42.0-52.0); Hemoglobin 14.6 g/dl (14.0-18.0); Imm Gran Abs Auto 0.01 X10*3/uL (0.00-0.03); Imm Gran Pct Auto 0.3 % (0.0-0.4); Lymphocytes Absolute Auto 1.2 X10*3/uL (1.2-4.9); Lymphocytes Percent Auto 35.2 % (20-40); Mean Corpuscular HGB Conc 33.5 g/dl (31.0-36.0); Mean Corpuscular Hemoglobin 29.9 pg (27.0-33.0); Mean Corpuscular Volume 89.2 fL (80.0-98.0); Mean Platelet Volume 9.3 fL (9.4-12.4); Monocytes Absolute Auto 0.2 X10*3/uL (0.1-1.2); Neutrophils Absolute Auto 1.9 x10*3/uL (2.0-8.3); Platelet Count 232 X10*3/uL (160-400); Red Blood Count 4.89 X10*6/uL (4.60-5.80); Red Cell Distribution Width 12.4 % (11.0-16.0); White Blood Count 3.4 X10*3/uL (4.8-10.8)
[2024-10-08 10:56] LABS: Estimated Average Glucose 114 mg/dL; Hemoglobin A1c % 5.6 % (<6.0)
[2024-10-08 11:29] LABS: Alanine Aminotransferase 23 U/L (0-40); Albumin Level 4.2 g/dL (3.5-5.0); Alkaline Phosphatase 53 U/L (39-117); Anion Gap 12 (12-20); Aspartate Amino Transferase 22 U/L (5-37); Bilirubin Total 0.5 mg/dL (0.0-1.0); Blood Urea Nitrogen 11 mg/dL (9-16); Calcium 9.6 mg/dL (8.4-10.2); Carbon Dioxide 23 mmol/L (22-29); Chloride 109 mmol/L (96-108); Cholesterol 216 mg/dL (<200); Estimated Glomerular Filt Rate > 60; Glucose Random 102 mg/dL (60-115); HDL Cholesterol 49 mg/dL (>40); LDL Cholesterol Calculated 153 mg/dL (<100); Potassium 4.4 mmol/L (3.3-5.1); Sodium 140 mmol/L (135-145); Total Protein 6.7 g/dL (6.5-8.0); Triglycerides 72 mg/dL (<150)
[2024-10-08 11:38] LABS: Prostate Specific Antigen Scr 0.67 ng/mL (<0.05-4.0)
[2024-10-08 11:43] LABS: Free T4 (Free Thyroxine) 1.08 ng/dL (0.71-1.85); Thyroid Stimulating Hormone 2.11 uIU/mL (0.32-4.0)
[2024-10-08 12:41] LABS: Folate 13.1 ng/mL (> or = 4.0); Vitamin B12 353 pg/mL (200-900)
== END 2024-10-08 09:46 | disposition home or self-care (01) ==
LOC: HO.LAB 09:45
PROVIDERS: PCP Internal Medicine; Visit Provider Internal Medicine
DX: R73.02 Impaired glucose tolerance (oral) (principal); E78.00 Pure hypercholesterolemia, unspecified
CPT/HCPCS: 36415; 80053; 80061; 82607; 82746; 83036; 84153; 84439; 84443; 85025

== ENCOUNTER 2024-10-12 12:33 | Outpatient (AMB) | payer OTHER, SELFPAY ==
--- NOTE | 2024-10-12 12:35 | A.OFFPC_ITS ---
Vital Signs 10/12/24 12:37 Height 6 ft Weight 163 lb 6 oz BMI 22.2 BP 110/78 Blood Pressure Location Lt brachial Position Sitting Pulse 88 Pulse Source Pulse Oximeter Pulse Oximetry (%) 97 Oxygen Delivery Method Room Air Intake Visit Reasons: PE Allergies penicillin V Allergy (Severe, Verified 10/12/24 12:36) Rash amoxicillin [AMOXICILLIN] Allergy (Unknown, Verified 10/12/24 12:36) RASH erythromycin base [ERYTHROMYCIN BASE] Allergy (Unknown, Verified 10/12/24 12:36) JOINTS PAIN Erythromycin Allergy (Severe, Uncoded 10/12/24 12:36) Rash Medication List - Last Reconciled 10/12/24 by Lala Parada MD cetirizine (Zyrtec) 10 mg PO DAILY PRN cyclobenzaprine 10 mg PO DAILY PRN fluticasone propionate 50 mcg/actuation 2 sprays intranasal DAILY multivitamin 1 tab PO DAILY Tobacco use date assessed: 10/12/24 Dental Screening Dental Screen Date: 10/12/24 Did you have a dental visit in the last 12 months?: Yes Did you have a dental problem in the last 6 months where you did not have access to dental care?: No Was dental information given to patient?: Patient has dentist HPI PE HPI Details 54-YEAR-OLD male with hypercholesterolem ia generalized anxiety disorder impaired glucose tolerance last seen in March coming in for physical exam. Patient's last colonoscopy was 2020. Review of the notes was in the ER September 18 for nausea and hematochezia. rectal bleeding 2 weeks- LAMA presently no more bleeding occ constipation. occ lightheaded PFSH Medical History Bradycardia Arrhythmia Mitral valve prolapse Tinea cruris Hip pain, right Colon cancer screening Tinnitus Allergic rhinitis GERD (gastroesophageal reflux disease) Reactive airway disease Insomnia Vitamin D deficiency Irritable bowel syndrome Hypercholesterolemia Family History Father Skin cancer Mother No problems noted. Brother Bipolar disorder Brother Substance abuse Sister No problems noted. Sister No problems noted. Paternal Grandmother Colon cancer Paternal Aunt Colon cancer Paternal Grandfather Stomach cancer Social History (Updated 10/12/24 @ 12:52 by Lala Parada MD) Housing: Apartment Alcohol intake: current Alcohol intake frequency: holidays/special occasions only Comment: once a month 1 beer Patient Tobacco Use Status: Never used Tobacco e-Cigarette/Vaping Use: Never Used Second Hand Smoke Exposure: No service: No Current occupational status: employed Cognitive needs: No Hearing needs: No Vision needs: No Questionnaire PHQ-9 Over the last 2 weeks, how often have you been bothered by any of the following problems? 1. Little interest or pleasure in doing things: not at all 2. Feeling down, depressed, or hopeless: not at all 3. Trouble falling or staying asleep, or sleeping too much: several days 4. Feeling tired or having little energy: not at all 5. Poor appetite or overeating: not at all 6. Feeling bad about yourself - or that you are a failure or have let yourself or your family down: not at all 7. Trouble concentrating on things, such as reading the newspaper or watching television: not at all 8. Moving or speaking so slowly that other people could have noticed. Or the opposite - being so fidgety or restless that you have been moving around a lot more than usual: not at all 9. Thoughts that you would be better off or of hurting yourself in some way: not at all Total score: 1 Depression Screening Interpretation: Negative Depression Screening Done: Yes 38563 - PHQ-9 Billing: Yes Source: Developed by Drs. Mauri Munoz, Patria Sousa, Demetrio Chacon and colleagues, with an educational antoinette from [employer]. Thrive Questionnaire Date Thrive assessed: 10/12/24 I am a: Patient What is your living situation today?: I have a steady place to live Within the past 12 months, did the food you bought not last and you didn't have the money to get more?: I choose not to answer this question Within the past 12 months, did you worry whether your food would run out before you got money to buy more?: I choose not to answer this question Do you have trouble paying for medicines?: I choose not to answer this question Do you have trouble getting transportation to medical appointments?: I choose not to answer this question Do you have trouble paying your heating and electricity bill?: I choose not to answer this question Do you have trouble taking care of your child, family member or friend?: I choose not to answer this question Do you have trouble with day-to-day activities such as bathing, preparing meals, shopping, managing finances, etc.?: I choose not to answer this question Are you currently unemployed and looking for a job?: I choose not to answer this question Are you interested in more education?: I choose not to answer this question Please select the resources that you would like help with: None Currently or been in a relationship where the following occur: I choose not to answer THRIVE Score: 0 AUDIT C Alcohol Use Questionnaire (AUDIT-C) 1. How often do you have a drink containing alcohol?: Monthly or less 2. How many drinks containing alcohol do you have on a typical day when you are drinking?: 1 or 2 3. How often do you have six or more drinks on one occasion?: Never Total Score: 1 MARITZA-7 AMB Questionnaire MARITZA-7 Date MARITZA - 7 assessed: 10/12/24 Feeling nervous, anxious, or on edge: 1 = Several days Not being able to stop or control worryin = Several days Worrying too much about different things: 1 = Several days Trouble relaxin = Several days Being so restless that it is hard to sit still: 0 = Not at all Becoming easily annoyed or irritable: 1 = Several days Feeling afraid as if something awful might happen: 1 = Several days Total MARITZA-7 score (0-4 normal; 5-9 mild; 10-14 moderate; 15-21 severe): 6 Source: Developed by Drs. Mauri Munoz, Patria Sousa, Demetrio Chacon and colleagues, with an educational antoinette from [employer]. MARITZA-7 Assessment Billing MARITZA-7 Assessment Tool: MARITZA-7 Assessment 08109 Review of Systems Const Denies poor appetite and Denies weakness Eyes Denies no additional complaints ENT Reports Normal hearing present, Denies dizziness, Denies nasal congestion, Denies tinnitus and Denies sore throat Card Denies chest pain, Denies syncope, Denies rapid heart rate and Denies dyspnea Resp Denies cough and Denies dyspnea GI Denies change in stool character, Reports constipation, Denies diarrhea, Denies nausea and Denies vomiting Denies dysuria and Denies urinary frequency Neuro Reports Normal hearing present, Denies confusion, Denies dizziness, Denies syncope and Denies weakness Psych Denies confusion Physical exam (Primary Care) Vital Signs: Last Vital Signs Pulse 88 10/12/24 12:37 BP 110/78 10/12/24 12:37 Pulse Ox 97 10/12/24 12:37 Oxygen Delivery Method Room Air 10/12/24 12:37 BMI result Body Mass Index 22.2 Tobacco/Smoking Status: Tobacco use Status Tobacco use date assessed 10/12/24 10/12/24 12:43 Patient Tobacco Use Status Never used Tobacco 10/12/24 12:52 e-Cigarette/Vaping Use Never Used 10/12/24 12:52 PHQ-9: PHQ-9 Score PHQ-9: Total score 1 10/12/24 12:43 Depression Screening Interpretation: Negative Thrive Assessment: Date of Thrive Assessment Date Thrive assessed 10/12/24 10/12/24 12:43 Currently or been in a relationship where the following occur: I choose not to answer Const General: No confusion Orientation/consciousness: No confusion HENMT Head: Yes normocephalic Ears: external ears normal and TM's normal bilaterally Face and sinus: Yes normal facial exam Mouth: moist mucous membranes Throat: Yes tonsils normal Eyes Conjunctivae: conjunctivae normal Pupils: Equal, round and reactive pupils present and Pupil accommodation reflex normal Direct Ophthalmoscopy: normal light reflex Neck Neck: No lymphadenopathy Thyroid: Thyroid normal Chest Chest palpation & inspection: normal inspection of the chest Resp Effort & Inspection: normal respiratory effort and no audible wheezes Auscultation: clear to auscultation bilaterally, no crackles, no wheezes and lung sounds not diminished Cardio Rate: regular rate Rhythm: regular rhythm Peripheral pulses: radial pulses present and dorsalis pedis present GI Palpation (GI): no masses Auscultation: normal bowel sounds and normoactive bowel sounds Rectal Exam - Male: Yes deferred Skin General skin exam: no rashes or lesions noted Rashes: no rashes Neuro General: No confusion Cranial nerves: Yes Equal, round and reactive pupils present and Yes Normal hearing present Cognition (Neuro): normal cognition Gait exam (Neuro): Normal gait present Motor exam (neuro): 5/5 motor strength present throughout Deep tendon reflexes (DTR's): Right brachioradialis reflex intensity grade: 2+, Left brachioradialis reflex intensity grade: 2+, Right patellar reflex intensity grade: 2+ and Left patellar reflex intensity grade: 2+ Extrem General: No edema Coding Level of Care Code Est Pt Prev Care 40-64y(18569) Diagnoses Annual physical exam Z00.00 Hypercholesterolemia E78.00 Gastroesophageal reflux disease without esophagitis K21.9 Esophagitis presence: without esophagitis Impaired glucose tolerance R73.02 Generalized anxiety disorder F41.1 Hematochezia K92.1 Multiple pigmented nevi D22.9 Additional Codes MARITZA-7 Assessment Billing - MARITZA-7 Assessment Tool: MARITZA-7 Assessment 29227 ([id number]) PHQ-9 - 78731 - PHQ-9 Billing: Yes ([id number]) Assessment & Plan Assessment & Plan (1) Annual physical exam: Code(s): Z00.00 - Encounter for general adult medical examination without abnormal findings Category: Medical Plan: Patient is advised to eat healthy, keep well hydrated, keep active and have adequate sleep. (2) Hypercholesterolemia: Code(s): E78.00 - Pure hypercholesterolemia, unspecified Category: Medical Plan: Avoid fried foods, chicken skin, eggs, butter margarine, pastries and meat. Be it pork or beef they have a lot of cholesterol LDL goal of less than 130 and triglyceride of less than 150 (3) GERD (gastroesophageal reflux disease): Code(s): K21.9 - Gastro-esophageal reflux disease without esophagitis Category: Medical Qualifiers: Esophagitis presence: without esophagitis Qualified Code(s): K21.9 - Gastro-esophageal reflux disease without esophagitis Plan: Avoid the foods that causes that usually spicy foods, tomato products, juices, coffee, soda and foods that your sensitive to. After eating do not lie down, allow 3-4 hours before in lie down. And keep the head of bed above 30 degrees to avoid the acid from going up. (4) Impaired glucose tolerance: Code(s): R73.02 - Impaired glucose tolerance (oral) Category: Medical Plan: Decrease the amount of carbohydrate intake, pasta, bread, rice and potatoes are all sugar and that is aside from all the sweet stuff, remember that fruits are good but they are Sweet also. (5) Generalized anxiety disorder: Code(s): F41.1 - Generalized anxiety disorder Category: Medical Plan: Stable (6) Hematochezia: Code(s): K92.1 - Melena Category: Medical Plan: Discussed concerns about hematochezia (7) Multiple pigmented nevi: Code(s): D22.9 - Melanocytic nevi, unspecified Category: Medical Plan: Dermatology referral done Orders: Referrals Dermatology Referral D22.9 - Melanocytic nevi, unspecified
[2024-10-12 12:37] VITALS: BP 110/78; PULSE 88; O2SAT 97; BMI 22.2
== END 2024-10-12 13:05 | disposition home or self-care (01) ==
PROVIDERS: PCP Internal Medicine; Visit Provider Internal Medicine
DX: Z00.00 Encounter for general adult medical examination without abnormal findings (principal); E78.00 Pure hypercholesterolemia, unspecified; K21.9 Gastro-esophageal reflux disease without esophagitis; R73.02 Impaired glucose tolerance (oral); F41.1 Generalized anxiety disorder; K92.1 Melena; D22.9 Melanocytic nevi, unspecified

== ENCOUNTER → 2024-10-12 12:33 | Outpatient (BNVA) | payer OTHER, SELFPAY | PROVIDERS: PCP Internal Medicine; Visit Provider Internal Medicine | DX: Z00.00 Encounter for general adult medical examination without abnormal findings (principal); E78.00 Pure hypercholesterolemia, unspecified; K21.9 Gastro-esophageal reflux disease without esophagitis; R73.02 Impaired glucose tolerance (oral); F41.1 Generalized anxiety disorder; K92.1 Melena; D22.9 Melanocytic nevi, unspecified | CPT/HCPCS: 96127; 99396 ==

== ENCOUNTER 2025-02-09 12:56 | Outpatient (AMB) | payer OTHER, SELFPAY ==
--- NOTE | 2025-02-09 12:57 | A.OFFPC_ITS ---
Intake Visit Reasons: COVID Pos. Allergies penicillin V Allergy (Severe, Verified 02/09/25 12:58) Rash amoxicillin [AMOXICILLIN] Allergy (Unknown, Verified 02/09/25 12:58) RASH erythromycin base [ERYTHROMYCIN BASE] Allergy (Unknown, Verified 02/09/25 12:58) JOINTS PAIN Erythromycin Allergy (Severe, Uncoded 02/09/25 12:58) Rash Medication List - Last Reconciled 02/09/25 by Lala Parada MD cetirizine (Zyrtec) 10 mg PO DAILY PRN cyclobenzaprine 10 mg PO DAILY PRN fluticasone propionate 50 mcg/actuation 2 sprays intranasal DAILY multivitamin 1 tab PO DAILY Tobacco use date assessed: 02/09/25 Dental Screening Dental Screen Date: 02/09/25 Did you have a dental visit in the last 12 months?: Yes Did you have a dental problem in the last 6 months where you did not have access to dental care?: No Was dental information given to patient?: Patient has dentist HPI COVID Pos. HPI Details Message on the phone 13:07sore throat yesterday , myalgia congested, fevers 100.4. PFSH Medical History Bradycardia Arrhythmia Mitral valve prolapse Tinea cruris Hip pain, right Colon cancer screening Tinnitus Allergic rhinitis GERD (gastroesophageal reflux disease) Reactive airway disease Insomnia Vitamin D deficiency Irritable bowel syndrome Hypercholesterolemia Family History Father Skin cancer Mother No problems noted. Brother Bipolar disorder Brother Substance abuse Sister No problems noted. Sister No problems noted. Paternal Grandmother Colon cancer Paternal Aunt Colon cancer Paternal Grandfather Stomach cancer Social History (Updated 10/12/24 @ 12:52 by Lala Parada MD) Housing: Apartment Alcohol intake: current Alcohol intake frequency: holidays/special occasions only Comment: once a month 1 beer Patient Tobacco Use Status: Never used Tobacco Tobacco use type: Cigarette e-Cigarette/Vaping Use: Never Used Second Hand Smoke Exposure: No service: No Current occupational status: employed Cognitive needs: No Hearing needs: No Vision needs: No Questionnaire Thrive Questionnaire Date Thrive assessed: 02/09/25 I am a: Patient What is your living situation today?: I have a steady place to live Within the past 12 months, did the food you bought not last and you didn't have the money to get more?: I choose not to answer this question Within the past 12 months, did you worry whether your food would run out before you got money to buy more?: I choose not to answer this question Do you have trouble paying for medicines?: I choose not to answer this question Do you have trouble getting transportation to medical appointments?: I choose not to answer this question Do you have trouble paying your heating and electricity bill?: I choose not to answer this question Do you have trouble taking care of your child, family member or friend?: I choose not to answer this question Do you have trouble with day-to-day activities such as bathing, preparing meals, shopping, managing finances, etc.?: I choose not to answer this question Are you currently unemployed and looking for a job?: I choose not to answer this question Are you interested in more education?: I choose not to answer this question Please select the resources that you would like help with: None Currently or been in a relationship where the following occur: I choose not to answer THRIVE Score: 0 AUDIT C Alcohol Use Questionnaire (AUDIT-C) 1. How often do you have a drink containing alcohol?: Monthly or less 2. How many drinks containing alcohol do you have on a typical day when you are drinking?: 1 or 2 3. How often do you have six or more drinks on one occasion?: Never Total Score: 1 MARITZA-7 AMB Questionnaire MARITZA-7 Date MARITZA - 7 assessed: 02/09/25 Feeling nervous, anxious, or on edge: 1 = Several days Not being able to stop or control worryin = Several days Worrying too much about different things: 1 = Several days Trouble relaxin = Several days Being so restless that it is hard to sit still: 0 = Not at all Becoming easily annoyed or irritable: 1 = Several days Feeling afraid as if something awful might happen: 1 = Several days Total MARITZA-7 score (0-4 normal; 5-9 mild; 10-14 moderate; 15-21 severe): 6 Source: Developed by Drs. Mauri Munoz, Patria Sousa, Demetrio Chacon and colleagues, with an educational antoinette from [employer]. MARITZA-7 Assessment Billing MARITZA-7 Assessment Tool: MARITZA-7 Assessment 05882 Physical exam (Primary Care) Tobacco/Smoking Status: Tobacco use Status Tobacco use date assessed 02/09/25 02/09/25 12:59 Patient Tobacco Use Status Never used Tobacco 02/09/25 12:59 Tobacco use type Cigarette 02/09/25 12:59 e-Cigarette/Vaping Use Never Used 02/09/25 12:59 Thrive Assessment: Date of Thrive Assessment Date Thrive assessed 02/09/25 02/09/25 12:59 Currently or been in a relationship where the following occur: I choose not to answer Telehealth Telehealth Telehealth Platform: Telephone Location of provider rendering services: practice address Location of patient: address on file Patient Identification confirmed using: Name, : Yes Telehealth method: voice only Patient verbally consented to treatment: Yes Patient verbally consented to billing insurance company: Yes Patient informed of any privacy concerns related to visit: Yes Coding Level of Care Code Tele Est Pt Level 3 (32273) Diagnoses COVID-19 virus infection U07.1 Additional Codes MARITZA-7 Assessment Billing - MARITZA-7 Assessment Tool: MARITZA-7 Assessment 09900 ([id number]) Assessment & Plan Assessment & Plan (1) COVID-19 virus infection: Comment: January Code(s): U07.1 - COVID-19 Category: Medical Plan: For the sore throat can take Cepacol lozenges, discussed about Delsym to help with dry cough so she can rest and advised to increase oral fluids. Patient also can take Tylenol for chills and fever. Antiviral prescription sent in Plan History of Present Illness The patient is a 54-year-old male presenting with suspected COVID-19 infection. The symptoms began with a sore throat, body aches, and a fever of 100.4?F, confirmed positive for COVID-19 upon testing the following morning. He shares his living arrangement with a healthcare worker who also tested positive. His medical history includes GERD, hypercholesterolemia, Generalized Anxiety Disorder, and impaired glucose tolerance. Current symptoms of concern are sore throat, body aches, and fever. He has managed symptoms with NyQuil and reports potential stomach pain unrelated to other symptoms. The focus is on managing the infection, specifically seeking antiviral medication potentially through state programs or local pharmacies. Review of Systems - Respiratory: Reports sore throat. - Musculoskeletal: Reports body aches. - Constitutional: Reports fever with a maximum temperature of 100.4?F, fatigue. - Gastrointestinal: Reports stomach pain occurring at differing times from other symptoms. - Psychiatric: Denies changes in anxiety levels at this time. Plan The management plan for suspected COVID-19 infection includes prescribing Paxlovid, with instructions to fill the prescription at [facility] pharmacy or explore obtaining it through state channels. Kfeh-bwy-ooqioyf medications such as Tylenol for fever, Delsym for a dry cough, and Mucinex for a productive cough were recommended. Increasing fluid intake and using lozenges like Cepacol for sore throat relief were also advised. The successful management of symptoms through timely intervention was emphasized. Patient was informed and verbally consented to the use of an ambient scribe for clinic note documentation during this visit. Discussion Notes I discussed the diagnosis of COVID-19 with the patient and emphasized the importance of timely treatment with antiviral medications like Paxlovid. I explained potential side effects, such as an altered taste, and the benefit of symptom duration reduction. We discussed the accessibility of Paxlovid via possible state assistance and obtaining prescriptions through [facility] pharmacy. Symptomatic management with common ofuk-fyl-ypmklke medications was also reviewed. Follow-up and communication were encouraged should symptoms worsen or do not resolve. Patient Instructions - Start Paxlovid therapy immediately. - Take Tylenol for fever control. - Use Delsym for a dry cough or Mucinex for a productive cough. - Increase fluid intake. - Soothe sore throat with Cepacol lozenges. - Consider obtaining Paxlovid through state assistance if beneficial. - Contact me if symptoms worsen or do not improve. Medications: New nirmatrelvir-ritonavir 300 mg (150 mg x 2)-100 mg (Paxlovid) take TWO 150 mg tablets of nirmatrelvir with ONE 100 mg tablet of ritonavir twice daily for 5 days PO 30 ea 0RF U07.1 - COVID-19 nirmatrelvir-ritonavir 300 mg (150 mg x 2)-100 mg (Paxlovid) take TWO 150 mg tablets of nirmatrelvir with ONE 100 mg tablet of ritonavir twice daily for 5 days PO 30 ea 0RF U07.1 - COVID-19
--- OUTSIDE RECORDS SUMMARY | 2025-02-09 15:30 | XMS_ITS | Patient Health Record ---
Author Organization [facility] Address [address] [place] [id number] Care Team Providers Care Outboard Motor Inspector Name Role Phone Lala Parada MD Primary Care Provider Nicho Marin Jr Unavailable [phone] Allergies Allergen (clinical drug ingredient) Drug/Non Drug Allergy documented on EMR Reaction Allergy Type Onset Date Status erythromycin Erythromycin Unknown Drug Allergy A ctive amoxicillin Amoxicillin Unknown Drug Allergy Act indira Reason For Referral No Information Medications Medication SIG (Take, Route, Frequency, Duration) Notes Start Date End Date Status Melatonin 3 MG 1 tablet at bedtime as needed Orally Once a day for 30 day(s) Active Multivitamin - 1 tablet Orally Once a day for 30 day(s) Active Vitamin D (Ergocalciferol) 5 0 MCG (1999) 1 capsule Orally Once a day for 30 day(s) Active MiraLax (colon prep) 17 GM/SCOOP mixed with Gatorade or Crystal Light Orally begin at 5:00 p.m. the day before the procedure for 1 day 10/09/2021 Active Cyclobenzaprine HCl 10 MG 1 tablet at be dtime as needed Orally Once a day for 30 day(s) Active Famotidine 20 MG 1 tablet at bedtime as needed Orally Once a day for 30 day(s) Active Immunizations Vaccine Route Administration Date Status Comme nts Influenza Unknown 09/19/2021 Administered Social History Alcohol Screen Question Answer Notes Did you have a drink containing alcohol in the p ast year? No Points 0 Interpretation Negative Problems Problem Type SNOMED Code ICD Code Onset Dates Problem Status W/U Status Risk Notes Problem 268408016 Colon cancer screening (Z12.11) Active confirmed Problem 25181757 Rectal pain (K62.89) Active confirmed Plan Of Treatment Future Test Test Name Order Date COLONOSCOPY 10/09/2021 Insurance Providers Payer Name Payer Address Payer Phone Subscriber Number Group Number Insured Name Patient Relationship to Insured Coverage Start Date Coverage End Date [facility] [address] [facility] [place] [phone] [id number] TATE SWAN Self - patient is the insured Medical (General) History Medical History History ICD Code Anxiety Leukopenia Gastroesophageal reflux disease Rectal pain Surgical History Surgery Date(Month/Year)
== END 2025-02-09 14:11 | disposition home or self-care (01) ==
LOC: HO.HMCH 12:56
PROVIDERS: PCP Internal Medicine; Visit Provider Internal Medicine
DX: U07.1 COVID-19 (principal)

== ENCOUNTER → 2025-02-09 12:56 | Outpatient (BNVA) | payer OTHER, SELFPAY | PROVIDERS: PCP Internal Medicine; Visit Provider Internal Medicine | DX: U07.1 COVID-19 (principal) | CPT/HCPCS: 96127 ==

== ENCOUNTER 2025-06-17 12:00 | Outpatient (REF) | payer OTHER, SELFPAY ==
[2025-06-17 12:17] LABS: MANUAL DIFF FLAG NO
[2025-06-17 12:22] LABS: Hematocrit 45.5 % (42.0-52.0); Hemoglobin 15.4 g/dl (14.0-18.0); Imm Gran Abs Auto 0.01 X10*3/uL (0.00-0.03); Imm Gran Pct Auto 0.3 % (0.0-0.4); Lymphocytes Absolute Auto 1.0 X10*3/uL (1.2-4.9); Mean Corpuscular HGB Conc 33.8 g/dl (31.0-36.0); Mean Corpuscular Hemoglobin 29.9 pg (27.0-33.0); Mean Corpuscular Volume 88.3 fL (80.0-98.0); NRBC Abs Auto 0.000 X10*3/uL (0.0-0.012); NRBC Pct Auto 0.0 /100WBC (0.0-0.2); Platelet Count 224 X10*3/uL (160-400); Red Blood Count 5.15 X10*6/uL (4.60-5.80); White Blood Count 3.9 X10*3/uL (4.8-10.8)
[2025-06-17 12:33] LABS: Hemoglobin A1C 152.0324 umol/L; Total Hemoglobin (HGBA1C) 3958.0326 umol/L
--- OUTSIDE RECORDS SUMMARY | 2025-06-17 12:41 | XMS_ITS | Patient Health Record ---
[facility] Address [address] [place] [address] Care Team Providers Care Scada Engineer Name Role Phone Lala Parada Primary Care Provider UnavailDestiny Atwood Unavailable [phone] Allergies Allergen (clinical drug ingredient) Drug/Non Drug Allergy documented on EMR Reaction Allergy Type Onset Date Status Biaxin swelling, joint pain Drug Allergy Active erythromycin Erythromycin swelling, joint pain Drug Allergy Active Penicillin hives Drug Allergy Active Z-Pac swelling Drug Allergy Active Reason For Referral No Information Problems Problem Type SNOMED Code ICD Code Onset Dates Problem Status W/U Status Risk Notes Problem Neoplasm of uncertain behavior of skin (95051558) Neoplasm of uncertain behavior of skin (238.2) Active confirmed Problem Pain in Limb (729.5) Active confirmed Problem Hammer toe (372966290) Hammer toe (735.4) Active confirmed Plan Of Treatment Pending Test Test Name Order Date [id number] Destruction, -03/10/2013 [id number] Destruction, -03/30/2013 [id number] Destruction, -05/01/2013 48511-Plbj Destruction, -05/14/2013 73649- Biopsy of skin lesion 02/23/2013 Insurance Providers Payer Name Payer Address Payer Phone Subscriber Number Group Number Insured Name Patient Relationship to Insured Coverage Start Date Coverage End Date [facility] [address] [place] [address] [id number] Pradip Dong Self - patient is the insured Medical (General) History Medical History History ICD Code chicken pox
--- OUTSIDE RECORDS SUMMARY | 2025-06-17 12:42 | XMS_ITS | Patient Health Record ---
Author Organization [facility] Address [address] [place] [phone] Care Team Providers Care Nursing Home Physician Name Role Phone Lala Parada MD Primary Care Provider Nicho Marin Jr Unavailable Allergies Allergen (clinical drug ingredient) Drug/Non Drug [...] Problem Status W/U Status Risk Notes Problem 077232898 Colon cancer screening (Z12.11) Active confirmed Problem 03076418 Rectal pain (K62.89) Active confirmed Plan Of Treatment Future Test Test Name Order Date COLONOSCOPY 10/09/2021 Insurance Providers Payer Name Payer Address Payer Phone Subscriber Number Group Number Insured Name Patient Relationship to Insured Coverage Start Date Coverage End Date [facility] [address] [facility] [place] [phone] [id number] TATE SWAN Self - patient is the insured Medical (General) History Medical History History ICD Code Anxiety Leukopenia Gastroesophageal reflux disease Rectal pain Surgical History Surgery Date(Month/Year)
[2025-06-17 12:57] LABS: Alanine Aminotransferase 21 U/L (0-40); Albumin Level 4.6 g/dL (3.5-5.0); Alkaline Phosphatase 64 U/L (39-117); Anion Gap 10 (12-20); Aspartate Amino Transferase 21 U/L (5-37); Blood Urea Nitrogen 12 mg/dL (9-16); Calcium 9.4 mg/dL (8.4-10.2); Carbon Dioxide 27 mmol/L (22-29); Chloride 107 mmol/L (96-108); Cholesterol 213 mg/dL (<200); Estimated Glomerular Filt Rate > 60; HDL Cholesterol 49 mg/dL (>40); Potassium 4.6 mmol/L (3.3-5.1); Sodium 139 mmol/L (135-145); Total Protein 7.2 g/dL (6.5-8.0); Triglycerides 93 mg/dL (<150)
[2025-06-17 13:13] LABS: Free T4 (Free Thyroxine) 1.02 ng/dL (0.71-1.85); Thyroid Stimulating Hormone 1.62 uIU/mL (0.32-4.0)
[2025-06-17 13:24] LABS: Folate 14.4 ng/mL (> or = 4.0); Vitamin B12 529 pg/mL (200-900)
== END 2025-06-17 12:01 | disposition home or self-care (01) ==
LOC: HO.LAB 12:00
PROVIDERS: PCP Internal Medicine; Visit Provider Internal Medicine
DX: R73.02 Impaired glucose tolerance (oral) (principal); E78.00 Pure hypercholesterolemia, unspecified
CPT/HCPCS: 36415; 80053; 80061; 82607; 82746; 83036; 84153; 84439; 84443; 85025

== ENCOUNTER 2025-06-29 12:38 | Outpatient (AMB) | payer OTHER, SELFPAY ==
[2025-06-29 12:41] VITALS: BP 114/80; PULSE 88; RESP 18; TEMP 36.1; O2SAT 97; BMI 22.1
--- NOTE | 2025-06-29 12:41 | A.OFFPC_ITS ---
Vital Signs 06/29/25 12:41 Height 6 ft Weight 163 lb 4 oz BMI 22.1 BP 114/80 Blood Pressure Location Lt brachial Position Sitting Respiration 18 Pulse 88 Pulse Source Pulse Oximeter Temp 97.0 F Temp Source Temporal Artery Scan Pulse Oximetry (%) 97 Oxygen Delivery Method Room Air Intake Visit Reasons: Gastroesophageal reflux disease (GERD) Allergies penicillin V Allergy (Severe, Verified 06/29/25 12:44) Rash amoxicillin (AMOXICILLIN) Allergy (Unknown, Verified 06/29/25 12:44) RASH erythromycin base (ERYTHROMYCIN BASE) Allergy (Unknown, Verified 06/29/25 12:44) JOINTS PAIN Erythromycin Allergy (Severe, Uncoded 06/29/25 12:44) Rash Tobacco use date assessed: 06/29/25 Dental Screening Dental Screen Date: 06/29/25 Did you have a dental visit in the last 12 months?: Yes Did you have a dental problem in the last 6 months where you did not have access to dental care?: No Was dental information given to patient?: Patient has dentist [facility] Medical History Bradycardia Arrhythmia Mitral valve prolapse Tinea cruris Hip pain, right Colon cancer screening Tinnitus Allergic rhinitis GERD (gastroesophageal reflux disease) Reactive airway disease Insomnia Vitamin D deficiency Irritable bowel syndrome Hypercholesterolemia Family History Father Skin cancer Mother No problems noted. Brother Bipolar disorder Brother Substance abuse Sister No problems noted. Sister No problems noted. Paternal Grandmother Colon cancer Paternal Aunt Colon cancer Paternal Grandfather Stomach cancer Social History Housing: Apartment Alcohol intake: current Alcohol intake frequency: holidays/special occasions only Comment: once a month 1 beer Patient Tobacco Use Status: Never used Tobacco Tobacco use type: Cigarette e-Cigarette/Vaping Use: Never Used Second Hand Smoke Exposure: No service: No Current occupational status: employed Cognitive needs: No Hearing needs: No Vision needs: No Questionnaire PHQ-9 Over the last 2 weeks, how often have you been bothered by any of the following problems? 1. Little interest or pleasure in doing things: several days 2. Feeling down, depressed, or hopeless: several days 3. Trouble falling or staying asleep, or sleeping too much: several days 4. Feeling tired or having little energy: not at all 5. Poor appetite or overeating: not at all 6. Feeling bad about yourself - or that you are a failure or have let yourself or your family down: several days 7. Trouble concentrating on things, such as reading the newspaper or watching television: several days 8. Moving or speaking so slowly that other people could have noticed. Or the opposite - being so fidgety or restless that you have been moving around a lot more than usual: not at all 9. Thoughts that you would be better off or of hurting yourself in some way: not at all Total score: 5 Source: Developed by Drs. Mauri Munoz, Patria Sousa, Demetrio Chacon and colleagues, with an educational antoinette from [employer]. Thrive Questionnaire Date Thrive assessed: 02/09/25 I am a: Patient What is your living situation today?: I have a steady place to live Within the past 12 months, did the food you bought not last and you didn't have the money to get more?: I choose not to answer this question Within the past 12 months, did you worry whether your food would run out before you got money to buy more?: I choose not to answer this question Do you have trouble paying for medicines?: I choose not to answer this question Do you have trouble getting transportation to medical appointments?: I choose not to answer this question Do you have trouble paying your heating and electricity bill?: I choose not to answer this question Do you have trouble taking care of your child, family member or friend?: I choose not to answer this question Do you have trouble with day-to-day activities such as bathing, preparing meals, shopping, managing finances, etc.?: I choose not to answer this question Are you currently unemployed and looking for a job?: I choose not to answer this question Are you interested in more education?: I choose not to answer this question Please select the resources that you would like help with: None Currently or been in a relationship where the following occur: I choose not to answer THRIVE Score: 0 AUDIT C Alcohol Use Questionnaire (AUDIT-C) 1. How often do you have a drink containing alcohol?: Monthly or less 2. How many drinks containing alcohol do you have on a typical day when you are drinking?: 1 or 2 3. How often do you have six or more drinks on one occasion?: Never Total Score: 1 MARITZA-7 AMB Questionnaire MARITZA-7 Date MARITZA - 7 assessed: 02/09/25 Feeling nervous, anxious, or on edge: 1 = Several days Not being able to stop or control worryin = Several days Worrying too much about different things: 3 = Nearly every day Trouble relaxin = Nearly every day Being so restless that it is hard to sit still: 1 = Several days Becoming easily annoyed or irritable: 3 = Nearly every day Feeling afraid as if something awful might happen: 3 = Nearly every day Total MARITZA-7 score (0-4 normal; 5-9 mild; 10-14 moderate; 15-21 severe): 15 Source: Developed by Drs. Mauri Munoz, Patria Sousa, Demetrio Chacon and colleagues, with an educational antoinette from [employer]. Physical exam (Primary Care) Vital Signs: Last Vital Signs Temp 97.0 F 06/29/25 12:41 Pulse 88 06/29/25 12:41 Resp 18 06/29/25 12:41 BP 114/80 06/29/25 12:41 Pulse Ox 97 06/29/25 12:41 Oxygen Delivery Method Room Air 06/29/25 12:41 BMI result Body Mass Index 22.1 Tobacco/Smoking Status: Tobacco use Status Tobacco use date assessed 06/29/25 06/29/25 12:46 Patient Tobacco Use Status Never used Tobacco 06/29/25 12:46 Tobacco use type Cigarette 06/29/25 12:46 e-Cigarette/Vaping Use Never Used 06/29/25 12:46 PHQ-9: PHQ-9 Score PHQ-9: Total score 5 06/29/25 17:35 Thrive Assessment: Date of Thrive Assessment Date Thrive assessed 02/09/25 06/29/25 12:46 Currently or been in a relationship where the following occur: I choose not to answer Const General: alert; No acute distress Eyes Conjunctivae: conjunctivae normal Resp Auscultation: clear to auscultation bilaterally Cardio Rate: regular rate Rhythm: regular rhythm GI Inspection: Yes normal to inspection Extrem General: Yes normal to inspection and No edema Coding Level of Care Code Est Pt Level 4 (36711) Diagnoses Impaired glucose tolerance R73.02 Hypercholesterolemia E78.00 Gastroesophageal reflux disease without esophagitis K21.9 Esophagitis presence: without esophagitis Assessment & Plan Assessment & Plan (1) Impaired glucose tolerance: Code(s): R73.02 - Impaired glucose tolerance (oral) Category: Medical Plan: Decrease the amount of carbohydrate intake, pasta, bread, rice and potatoes are all sugar and that is aside from all the sweet stuff, remember that fruits are good but they are Sweet also. (2) Hypercholesterolemia: Code(s): E78.00 - Pure hypercholesterolemia, unspecified Category: Medical Plan: Avoid fried foods, chicken skin, eggs, butter margarine, pastries and meat. Be it pork or beef they have a lot of cholesterol LDL goal of less than 130 and triglyceride of less than 150 (3) GERD (gastroesophageal reflux disease): Code(s): K21.9 - Gastro-esophageal reflux disease without esophagitis Category: Medical Qualifiers: Esophagitis presence: without esophagitis Qualified Code(s): K21.9 - Gastro-esophageal reflux disease without esophagitis Plan: Avoid the foods that causes that usually spicy foods, tomato products, juices, coffee, soda and foods that your sensitive to. After eating do not lie down, allow 3-4 hours before in lie down. And keep the head of bed above 30 degrees to avoid the acid from going up. Plan History of Present Illness The patient is a 55-year-old male presenting for a follow-up visit after a previous COVID-19 infection and to discuss ongoing management of chronic conditions. The patient has a history of hypercholesterolemia, with recent lab results showing an LDL cholesterol level of 146 mg/dL, which is an improvement from previous levels but still above the target of less than 130 mg/dL. The patient has been advised to continue lifestyle modifications, including diet and exercise, to further reduce cholesterol levels. The patient also has a history of Gastroesophageal Reflux Disease (GERD), managed with famotidine 120 mg at night. He reports that symptoms are generally controlled, but he experiences pain when consuming hot or spicy foods and has reduced intake of carbonated beverages and caffeine to manage symptoms. An upper GI series has been suggested to evaluate for potential hiatal hernia. The patient has a history of anxiety disorder and reports low tolerance to stress. Recent lab work from June 17 indicates mild leukopenia, which is a chronic issue for the patient, and an elevated fasting blood glucose level of 104 mg/dL with a hemoglobin A1c of 5.7%. The patient has been counseled on dietary modifications to manage blood glucose levels, emphasizing the reduction of sugar and carbohydrate intake. Health Maintenance - Colonoscopy up to date as of November 2021 - Discussion of shingles vaccination, recommended but not required - COVID-19 and flu vaccination updates discussed for future planning Social History - Exercise: Engages in regular physical activity, achieving at least 10,000 steps daily - Diet: Primarily vegetarian diet with efforts to reduce sugar and carbohydrate intake Review of Systems - Gastrointestinal: Reports heartburn and pain with hot or spicy foods, denies difficulty swallowing - Musculoskeletal: Denies abdominal pain on palpation Physical Exam - Abdominal: No tenderness or pain noted upon palpation - Cardiovascular: Heart and lungs auscultated, no abnormalities noted Results - Labs: Mild leukopenia, elevated fasting blood glucose at 104 mg/dL, hemoglobin A1c at 5.7%, LDL cholesterol at 146 mg/dL Plan The patient will continue lifestyle modifications to manage hypercholesterolemia, including dietary changes and regular physical activity, aiming to reduce LDL cholesterol levels to below 130 mg/dL. An upper GI series is planned to evaluate for a potential hiatal hernia due to ongoing GERD sympto ms, despite current management with famotidine. The patient is advised to maintain dietary modifications to manage elevated blood glucose levels, focusing on reducing sugar and carbohydrate intake. Preventative care measures include ensuring vaccinations are up to date, with discussions around shingles and COVID-19 vaccinations. Patient was informed and verbally consented to the use of an ambient scribe for clinic note documentation during this visit. Discussion Notes During the visit, we discussed the importance of managing hypercholesterolemia through lifestyle modifications, including diet and exercise, to achieve an LDL cholesterol level below 130 mg/dL. We also reviewed the patient's GERD management with famotidine and the potential need for an upper GI series to assess for a hiatal hernia. The patient was advised on dietary changes to manage elevated blood glucose levels. Preventative care discussions included the benefits of shingles and COVID-19 vaccinations. Follow-up on test results and further management plans were outlined. Patient Instructions - Continue dietary changes and regular exercise to manage cholesterol levels. - Schedule and complete the upper GI series as planned. - Maintain dietary modifications to manage blood glucose levels, focusing on reducing sugar and carbohydrate intake. - Consider getting shingles and COVID-19 vaccinations as discussed. Orders: Orders FL upper GI series Today K21.9 - Gastro-esophageal reflux disease without es ophagitis, R13.10 - Dysphagia, unspecified
--- OUTSIDE RECORDS SUMMARY | 2025-06-29 13:24 | XMS_ITS | Encounter Summary ---
Author Organization [facility] Address [address] [place] [address] Phone Care Team Providers Care Administrative Accountant Name Role Phone Lala Parada MD Primary Care Provider [phone] Reason for Referral * Speech Therapy (Routine) - Closed Specialty Diagnoses / Procedures Referred By Contac t Referred To Contact Speech Pathology Diagnoses Encounter for rehabilitation Shahram Hazel MD Phone: tel: fax: [facility] [address] [place] [address] Phone: tel: Referral ID Status Reason Start Date Expiration Date Visits Re quested Visits Authorized [id number] Closed 06/09/2019 12/01/2020 6 6 Encounter Details Date Type Department Care Team (Latest Contact Info) Description 06/09/2019 Transcribe Orders [facility] [address] [place] [address] [facility]el [facility] [address] [place] [id number] Encounter for rehabilitation (Primary Dx) Social History Tobacco Use Types Packs/Day Years Used Date Smoking Tobacco: Never Assessed Sex and Gender Information Value Date Recorded Sex Assigned at Male 09/17/2024 8:58 PM EDT Legal Sex Male 7:23 PM EST Gender Identity Male 09/17/2024 8:58 PM EDT Sexual Orientation Straight 09/17/2024 8: 58 PM EDT documented as of this encounter Plan of Treatment Scheduled Referrals Name Type Priority Associated Diagnoses Orde r Schedule Ambulatory referral to [facility] Speech Language Pathology Outpatient Referral Routine Encounter for rehabilitation Ordered: 06/09/2019 documented as of this encounter Visit Diagnoses Diagnosis Encounter for rehabilitation- Primary documented in this encounter Care Teams Administrative Accountant Relationship Specialty Start Date End Date Lala Parada MD [address] [place] [address] PCP - General 06/12/19 documented as of this encounter Additional Source Comments The information contained in this document represents components of the legal health record. It is not the complete legal health record.[facility]
--- OUTSIDE RECORDS SUMMARY | 2025-06-29 13:24 | XMS_ITS | Patient Health Record ---
Author Organization [facility] Address [address] [place] [id number] Care Team Providers Care Metal Spinner Name Role Phone Lala Parada MD Primary Care Provider Nicho Marin Jr Unavailable [phone] Allergies Allergen (clinical drug ingredient) Drug/Non Drug [...] Problem Status W/U Status Risk Notes Problem [id number] Colon cancer screening (Z12.11) Active confirmed Problem 75249180 Rectal pain (K62.89) Active confirmed Plan Of Treatment Future Test Test Name Order Date COLONOSCOPY 10/09/2021 Insurance Providers Payer Name Payer Address Payer Phone Subscriber Number Group Number Insured Name Patient Relationship to Insured Coverage Start Date Coverage End Date [facility] [address] [facility] [place] [phone] [id number] TATE SWAN Self - patient is the insured Medical (General) History Medical History History ICD Code Anxiety Leukopenia Gastroesophageal reflux disease Rectal pain Surgical History Surgery Date(Month/Year)
--- OUTSIDE RECORDS SUMMARY | 2025-06-29 13:24 | XMS_ITS | Patient Health Record ---
[facility] [place] Address [address] [place] [address] Care Team Providers Care Daily Release And Dupe Printer Name Role Phone Lala Parada Primary Care Provider Unavailkarri e Destiny Hurt Unavailable [phone] Allergies Allergen (clinical drug ingredient) Drug/Non Drug [...] Problem Neoplasm of uncertain behavior of skin (68851262) Neoplasm of uncertain behavior of skin (238.2) Active confirmed Problem Pain in limb (10735609) Pain in Limb (729.5) Active confirmed Problem Hammer toe (679242063) Hammer toe (735.4) Active confirmed Plan Of Treatment Pending Test Test Name Order Date 18517-Nagp Destruction, -03/10/2013 45195-Ovnn Destruction, -03/30/2013 15696-Lidm Destruction, -05/01/2013 63196-Kpuw Destruction, -05/14/2013 79451- Biopsy of skin lesion 02/23/2013 Insurance Providers Payer Name Payer Address Payer Phone Subscriber Number Group Number Insured Name Patient Relationship to Insured Coverage Start Date Coverage End Date [facility] [address] [place] [address] [phone] [id number] Pradip Dong Self - patient is the insured Medical (General) History Medical History History ICD Code chicken pox
== END 2025-06-29 13:16 | disposition home or self-care (01) ==
LOC: HO.HMCH 12:39
PROVIDERS: PCP Internal Medicine; Visit Provider Internal Medicine
DX: R73.02 Impaired glucose tolerance (oral) (principal); E78.00 Pure hypercholesterolemia, unspecified; K21.9 Gastro-esophageal reflux disease without esophagitis

== ENCOUNTER → 2025-06-29 12:38 | Outpatient (BNVA) | payer OTHER, SELFPAY | PROVIDERS: PCP Internal Medicine; Visit Provider Internal Medicine | DX: K21.9 Gastro-esophageal reflux disease without esophagitis (principal); R73.02 Impaired glucose tolerance (oral); E78.00 Pure hypercholesterolemia, unspecified; Z13.30 Encounter for screening examination for mental health and behavioral disorders, unspecified | CPT/HCPCS: 99212 ==

== ENCOUNTER 2025-08-20 07:50 | Outpatient (REF) | payer OTHER, SELFPAY ==
--- NOTE | ~2025-08-20 | FL_ITS ---
EXAMINATION: XR FLUOROSCOPY UPPER GI WITH AIR CLINICAL INFORMATION: Dysphagia COMPARISON: None available. TECHNIQUE: Routine upper GI air contrast study was performed in upright and lying position. FINDINGS: On oral administration of thick barium and effervescent granules there is normal propagation of bolus from the oral cavity through the pharynx esophagus without obstruction, narrowing or stricture. There is trace laryngeal penetration without aspiration. Mild retention of thick barium was noted in the helically which cleared with subsequent swallowing. On placing patient supine and prone lying the course, caliber and peristalsis of the stomach, duodenal bulb and the sweep is normal. There are increased secretions and gastric erosive changes in the body of the stomach. There is trace gastroesophageal reflux. No hiatal hernia seen. FLUOROSCOPY TIME: 2 minute 35 seconds DOSE AREA PRODUCT: 20-38 uGy-m2 (microgray-meter squared) FL/FL upper GI w air IMPRESSION: Trace gastroesophageal reflux without hiatal hernia. Gastric erosive changes with increased gastric secretions seen. Electronically signed by: Emmanuel Nunez MD 08/20/2025 10:49 AM EDT
--- OUTSIDE RECORDS SUMMARY | 2025-08-20 07:52 | XMS_ITS | Encounter Summary ---
Author Organization [facility] Address [address] [place] [address] Phone Care Team Providers Care Billet Inspector Name Role Phone Lala Parada MD Primary Care Provider [phone] Reason for Referral * Speech Therapy (Routine) - Closed Specialty Diagnoses / Procedures Referred By Contac t Referred To Contact Speech Pathology Diagnoses Encounter for rehabilitation Shahram Hazel MD Phone: tel: fax: [facility] [address] [place] [address] Phone: tel: Referral ID Status Reason Start Date Expiration Date Visits Re quested Visits Authorized [id number] Closed 06/09/2019 12/01/2020 6 6 Encounter Details Date Type Department Care Team (Latest Contact Info) Description 06/09/2019 Transcribe Orders [facility] [address] [place] [address] Shahram Hazel MD [facility] [address] [place] [address] Encounter for rehabilitation (Primary Dx) Social History [...] Diagnoses Orde r Schedule Ambulatory referral to [facility] Speech Language Pathology Outpatient Referral Routine Encounter for rehabilitation Ordered: 06/09/2019 documented as of this encounter Visit Diagnoses Diagnosis Encounter for rehabilitation- Primary documented in this encounter Care Teams Billet Inspector Relationship Specialty Start Date End Date Lala Parada MD [address] [place] [address] PCP - General 06/12/19 documented as of this encounter Additional Source Comments The information contained in this document represents components of the legal health record. It is not the complete legal health record.[facility]
--- OUTSIDE RECORDS SUMMARY | 2025-08-20 07:52 | XMS_ITS | Clinical Summary ---
Author Organization [facility] Address [address] [address] Phone Care Team Providers Care Clearing Hand Name Role Phone Lala Parada MD Primary Care Provider [phone] Allergies Active Allergy Reactions Criticality Noted Date Comments Amoxicillin Hives Medium 09/17/2024 Medications cetirizine (ZYRTEC) 10 MG tablet Take 10 mg by mouth daily. Active therapeutic multivitamin tablet Take 1 tablet by mouth daily. Active cyclobenzaprine (FLEXERIL) 10 MG tablet Take 10 mg by mouth 3 (three) times a day as needed for muscle spasms. Active hydrocortisone 1 % cream Apply 1 Application topically 2 (two) times a day. Active Social History Tobacco Use Types Packs/Day Years Used Date Smoking Tobacco: Never Passive Smoke Exposure: Never Smokeless Tobacco: Never Tobacco Cessation:Counseling Given: Not Answered Alcohol Use Standard Drinks/Week Comments Yes 0 (1 standard drink = 0.6 oz pur e alcohol) rare Education Answer Date Recorded Are you interested in more education? Not on delmy e 03/28/2023 Are you concerned about learning? Not on file 03/28/2023 No 03/28/2023 No 03/28/2023 Digital Access Answer Date Recorded No 04/29/2023 No 04/29/2023 Reliable internet access at home? Not on file 04/29/2023 Device with a working camera? Not on file Intimate Partner Violence Answer Date R ecorded Are you denied basic needs s uch as food, clothing, or medical care? No 09/17/2024 In the past 12 months have y ou been in a relationship with a person who hurts, threatens, or tries to control you? No 09/17/2024 Are you denied basic needs s uch as food, clothing, or medical care? No 09/17/2024 In the past 12 months have y ou been in a relationship with a person who hurts, threatens, or tries to control you? No 09/17/2024 Sex and Gender Information Value Date Recorded Sex Assigned at Male 09/17/2024 8:58 PM EDT Legal Sex Male 7:23 PM EST Gender Identity Male 09/17/2024 8:58 PM EDT Sexual Orientation Straight 09/17/2024 8: 58 PM EDT Last Filed Vital Signs Vital Sign Reading Time Taken Comments Blood Pressure 144/89 09/17/2024 10:51 PM EDT Pulse 93 09/17/2024 10:51 PM EDT Temperature 37.3 C (99.1 F) 09/17/2024 10:51 PM EDT Respiratory Rate 19 09/17/2024 10:51 PM EDT Oxygen Saturation 95% 09/17/2024 10:51 PM EDT Inhaled Oxygen Concentration - - Weight 72.6 kg (160 lb) 09/17/2024 8:52 PM EDT Height 182.9 cm (6') 09/17/2024 8:52 PM EDT Body Mass Index 21.7 09/17/2024 8:52 PM EDT Plan of Treatment Health Maintenance Due Date Last Done Comments Adult Td,Tdap Booster 1972 LIPID PANEL 1972 DEPRESSION SCREENING 1984 HEPATITIS C SCREENING 1990 HIV ONE-TIME SCREENING (18-65 YEARS) 1990 SMOKING STATUS SCREENING (Once After 26 Yrs) 1998 COLOGUARD 2017 COLONOSCOPY 2017 COLORECTAL CANCER SCREENING 2017 FIT TEST 2017 FOBT 2017 SIGMOIDOSCOPY 2017 VIRTUAL COLONOSCOPY 2017 PNEUMOCOCCAL VACCINES (50+ years) (1 of 1 - PCV) 2022 ZOSTER VACCINES (1 of 2) 2022 INFLUENZA VACCINE (#1) 2025 0, 09/15/2019, 09/12/2018, Additional history exists COVID-19 VACCINE ( season) 2025 03/15/2021 HEPATITIS A VACCINES Aged Out No long er eligible based on patient's age to complete this topic HIB VACCINES Aged Out No longer eligi ble based on patient's age to complete this topic MENINGOCOCCAL VACCINES (ACWY) Aged Out No longer eligible based on patient's age to complete this topic MENINGOCOCCAL VACCINES (B) Aged Out N o longer eligible based on patient's age to complete this topic Medical Devices Not on file Insurance NON NSPG PCP [employer] NON NSPG PCP [employer] WELLSENSE NON NSPG PCP [employer] [address] [place], [place] [address]ENSE NON NSPG PCP [employer]CIAL CHAMPAIGNENSE NON NSPG PCP [employer] WELLS[employer] NON NSPG PCP [employer] Care Teams Clearing Hand Relationship Specialty Start Date End Date Lala Parada MD [address] [place] [phone] PCP - General 06/12/19 Additional Source Comments The information contained in this document represents components of the legal health record. It is not the complete legal health record.[facility]
== END 2025-08-20 07:51 | disposition home or self-care (01) ==
LOC: HO.XRAY 07:50
PROVIDERS: PCP Internal Medicine; Visit Provider Internal Medicine
DX: R13.10 Dysphagia, unspecified (principal); K21.9 Gastro-esophageal reflux disease without esophagitis
CPT/HCPCS: 74246

== ENCOUNTER → 2025-08-20 07:50 | Outpatient (BNV) | payer OTHER, SELFPAY | PROVIDERS: PCP Internal Medicine; Visit Provider Radiology Diagnostic Radiology | DX: R13.10 Dysphagia, unspecified (principal) | CPT/HCPCS: 74246 ==

== ENCOUNTER 2025-10-11 09:33 | Outpatient (REF) | payer OTHER, SELFPAY ==
[2025-10-11 09:43] LABS: MANUAL DIFF FLAG NO
[2025-10-11 10:17] LABS: Hematocrit 43.6 % (42.0-52.0); Hemoglobin 14.2 g/dl (14.0-18.0); Imm Gran Abs Auto 0.01 X10*3/uL (0.00-0.03); Imm Gran Pct Auto 0.2 % (0.0-0.4); Lymphocytes Absolute Auto 1.4 X10*3/uL (1.2-4.9); Mean Corpuscular HGB Conc 32.6 g/dl (31.0-36.0); Mean Corpuscular Hemoglobin 29.2 pg (27.0-33.0); Mean Corpuscular Volume 89.7 fL (80.0-98.0); NRBC Abs Auto 0.000 X10*3/uL (0.0-0.012); NRBC Pct Auto 0.0 /100WBC (0.0-0.2); Platelet Count 207 X10*3/uL (160-400); Red Blood Count 4.86 X10*6/uL (4.60-5.80); White Blood Count 4.2 X10*3/uL (4.8-10.8)
--- OUTSIDE RECORDS SUMMARY | 2025-10-11 10:45 | XMS_ITS | Patient Health Record ---
Author [facility] [place] Address [address] [place] [address] Care Team Providers Care Can Striper Name Role Phone Lala Parada Primary Care Provider Unavailkarri e Destiny Hurt Unavailable [phone] Allergies Allergen (clinical drug ingredient) Drug/Non Drug [...] Problem Neoplasm of uncertain behavior of skin (41041826) Neoplasm of uncertain behavior of skin (238.2) Active confirmed Problem Pain in limb (56519962) Pain in Limb (729.5) Active confirmed Problem Hammer toe (413684677) Hammer toe (735.4) Active confirmed Plan Of Treatment Pending Test Test Name Order Date [id number]-Litv Destruction, -03/10/2013 41967-Idno Destruction, -03/30/2013 42554-Duox Destruction, 12-1505/01/2013 50253-Rfey Destruction, -05/14/2013 89657- Biopsy of skin lesion 02/23/2013 Insurance Providers Payer Name Payer Address Payer Phone Subscriber Number Group Number Insured Name Patient Relationship to Insured Coverage Start Date Coverage End Date [facility] [employer] [facility] [address] [place] [phone] [id number] Pradip Dong Self - patient is the insured Medical (General) History Medical History History ICD Code chicken pox
--- OUTSIDE RECORDS SUMMARY | 2025-10-11 10:47 | XMS_ITS | Encounter Summary ---
Author Organization [facility] Address [address] [place] [address] Phone Care Team Providers Care Life Enrichment Assistant Name Role Phone Lala Parada MD Primary Care Provider [phone] Reason for Referral * Speech Therapy (Routine) - Closed Specialty Diagnoses / Procedures Referred By Contac t Referred To Contact Speech Pathology Diagnoses Encounter for rehabilitation Shahram Hazel MD Phone: tel: fax: [facility] [address] [place] [address] Phone: tel: Referral ID Status Reason Start Date Expiration Date Visits Re quested Visits Authorized [id number] Closed 06/09/2019 12/01/2020 6 6 Encounter Details Date Type Department Care Team (Latest Contact Info) Description 06/09/2019 Transcribe Orders [facility] [address] [place] [address] Shahram Hazel MD [facility] [address] [place] [address] Encounter for rehabilitation (Primary Dx) Social History [...] Diagnoses Orde r Schedule Ambulatory referral to [facility] Speech Language Pathology Outpatient Referral Routine Encounter for rehabilitation Ordered: 06/09/2019 documented as of this encounter Visit Diagnoses Diagnosis Encounter for rehabilitation- Primary documented in this encounter Care Teams Life Enrichment Assistant Relationship Specialty Start Date End Date Lala Parada MD [address] [place] [address] PCP - General 06/12/19 documented as of this encounter Additional Source Comments The information contained in this document represents components of the legal health record. It is not the complete legal health record.[facility]
--- OUTSIDE RECORDS SUMMARY | 2025-10-11 10:47 | XMS_ITS | Clinical Summary ---
Author Organization [facility] Address [address] [address] Phone Care Team Providers Care Toll Lineman Name Role Phone Lala Parada MD Primary Care Provider [phone] Allergies Active Allergy Reactions Criticality Noted Date [...] topic Medical Devices Not on file [place] [address] NON NSPG PCP [employer] [facility] NON NSPG PCP [employer] NON NSPG PCP [employer] NON NSPG PCP [employer] NON NSPG PCP [employer] NON NSPG PCP [employer] Care Teams Toll Lineman Relationship Specialty Start Date End Date Lala Parada MD [address] [place] [address] [address] [place] [phone] PCP - General 06/12/19 Additional Source Comments The information contained in this document represents components of the legal health record. It is not the complete legal health record.[facility]
[2025-10-11 11:14] LABS: Alanine Aminotransferase 24 U/L (0-40); Albumin Level 4.4 g/dL (3.5-5.0); Alkaline Phosphatase 57 U/L (39-117); Anion Gap 10 (12-20); Aspartate Amino Transferase 26 U/L (5-37); Blood Urea Nitrogen 17 mg/dL (9-16); Calcium 9.2 mg/dL (8.4-10.2); Carbon Dioxide 25 mmol/L (22-29); Chloride 110 mmol/L (96-108); Cholesterol 197 mg/dL (<200); Estimated Glomerular Filt Rate > 60; Free T4 (Free Thyroxine) 1.00 ng/dL (0.71-1.85); HDL Cholesterol 45 mg/dL (>40); Potassium 4.3 mmol/L (3.3-5.1); Sodium 141 mmol/L (135-145); Thyroid Stimulating Hormone 2.34 uIU/mL (0.32-4.0); Total Protein 6.7 g/dL (6.5-8.0); Triglycerides 82 mg/dL (<150)
[2025-10-11 11:21] LABS: Hemoglobin A1C 106.2864 umol/L
[2025-10-11 12:58] LABS: Appearance Urine Clear; Glucose Urine UA Negative (Negative); PH 5.5 (5.0-9.0); Specific Gravity - Urine 1.020 (1.005-1.025); UMIC TRIGGER UACC YES
== END 2025-10-11 09:34 | disposition home or self-care (01) ==
LOC: HO.LAB 09:33
PROVIDERS: PCP Internal Medicine; Visit Provider Internal Medicine
DX: E78.00 Pure hypercholesterolemia, unspecified (principal)
CPT/HCPCS: 36415; 80053; 80061; 81001; 81003; 83036; 84439; 84443; 85025

== ENCOUNTER 2025-10-13 12:29 | Outpatient (AMB) | payer OTHER, SELFPAY ==
[2025-10-13 12:36] VITALS: BP 124/68; PULSE 80; O2SAT 98; BMI 21.6
--- NOTE | 2025-10-13 12:36 | A.OFFPC_ITS ---
Vital Signs 10/13/25 12:36 Height 6 ft Weight 159 lb BMI 21.6 BP 124/68 Blood Pressure Location Lt brachial Position Sitting Pulse 80 Pulse Source Pulse Oximeter Pulse Oximetry (%) 98 Oxygen Delivery Method Room Air Intake Visit Reasons: Annual exam Allergies penicillin V Allergy (Severe, Verified 10/13/25 12:37) Rash amoxicillin (AMOXICILLIN) Allergy (Unknown, Verified 10/13/25 12:37) RASH erythromycin base (ERYTHROMYCIN BASE) Allergy (Unknown, Verified 10/13/25 12:37) JOINTS PAIN Erythromycin Allergy (Severe, Uncoded 10/13/25 12:37) Rash Medication List - Last Reconciled 10/13/25 by Lala Parada MD cetirizine (Zyrtec) 10 mg PO DAILY PRN cyclobenzaprine 10 mg PO DAILY PRN famotidine (Acid Docking Saw Operator (famotidine)) 20 mg PO BEDTIME fluticasone propionate 50 mcg/actuation 2 sprays intranasal DAILY multivitamin 1 tab PO DAILY Tobacco use date assessed: 06/29/25 Dental Screening Dental Screen Date: 06/29/25 HPI Annual exam HPI Details fall 3 days ago hit face, no bleeding , nose still painful [facility] Medical History Bradycardia Arrhythmia Mitral valve prolapse Tinea cruris Hip pain, right Colon cancer screening Tinnitus Allergic rhinitis GERD (gastroesophageal reflux disease) Reactive airway disease Insomnia Vitamin D deficiency Irritable bowel syndrome Hypercholesterolemia Family History Father Skin cancer Mother No problems noted. Brother Bipolar disorder Brother Substance abuse Sister No problems noted. Sister No problems noted. Paternal Grandmother Colon cancer Paternal Aunt Colon cancer Paternal Grandfather Stomach cancer Social History Housing: Apartment Alcohol intake: current Alcohol intake frequency: holidays/special occasions only Comment: once a month 1 beer Patient Tobacco Use Status: Never used Tobacco Tobacco use type: Cigarette e-Cigarette/Vaping Use: Never Used Second Hand Smoke Exposure: No service: No Current occupational status: employed Cognitive needs: No Hearing needs: No Vision needs: No Questionnaire PHQ-9 Over the last 2 weeks, how often have you been bothered by any of the following problems? 1. Little interest or pleasure in doing things: several days 2. Feeling down, depressed, or hopeless: several days 3. Trouble falling or staying asleep, or sleeping too much: several days 4. Feeling tired or having little energy: not at all 5. Poor appetite or overeating: not at all 6. Feeling bad about yourself - or that you are a failure or have let yourself or your family down: several days 7. Trouble concentrating on things, such as reading the newspaper or watching television: several days 8. Moving or speaking so slowly that other people could have noticed. Or the opposite - being so fidgety or restless that you have been moving around a lot more than usual: not at all 9. Thoughts that you would be better off or of hurting yourself in some way: not at all Total score: 5 Depression Screening Interpretation: Positive Depression Screening Done: Yes Source: Developed by Drs. Mauri Munoz, Patria Sousa, Demetrio Chacon and colleagues, with an educational antoinette from [employer]. Thrive Questionnaire Date Thrive assessed: 02/09/25 I am a: Patient What is your living situation today?: I have a steady place to live Within the past 12 months, did the food you bought not last and you didn't have the money to get more?: I choose not to answer this question Within the past 12 months, did you worry whether your food would run out before you got money to buy more?: I choose not to answer this question Do you have trouble paying for medicines?: I choose not to answer this question Do you have trouble getting transportation to medical appointments?: I choose not to answer this question Do you have trouble paying your heating and electricity bill?: I choose not to answer this question Do you have trouble taking care of your child, family member or friend?: I choose not to answer this question Do you have trouble with day-to-day activities such as bathing, preparing meals, shopping, managing finances, etc.?: I choose not to answer this question Are you currently unemployed and looking for a job?: I choose not to answer this question Are you interested in more education?: I choose not to answer this question Please select the resources that you would like help with: None Currently or been in a relationship where the following occur: I choose not to answer THRIVE Score: 0 AUDIT C Alcohol Use Questionnaire (AUDIT-C) 1. How often do you have a drink containing alcohol?: Monthly or less 2. How many drinks containing alcohol do you have on a typical day when you are drinking?: 1 or 2 3. How often do you have six or more drinks on one occasion?: Never Total Score: 1 MARITZA-7 AMB Questionnaire MARITZA-7 Date MARITZA - 7 assessed: 02/09/25 Source: Developed by Drs. Mauri Munoz, Patria Sousa, Demetrio Chacon and colleagues, with an educational antoinette from [employer]. Review of Systems Const Denies poor appetite and Denies weakness Eyes Denies no additional complaints ENT Reports Normal hearing present, Denies dizziness, Denies nasal congestion, Denies tinnitus and Denies sore throat Card Denies chest pain, Denies syncope, Denies rapid heart rate and Denies dyspnea Resp Denies cough and Denies dyspnea GI Denies change in stool character, Reports constipation, Denies diarrhea, Denies nausea and Denies vomiting Denies dysuria and Denies urinary frequency Neuro Reports Normal hearing present, Denies confusion, Denies dizziness, Denies syncope and Denies weakness Psych Denies confusion Physical exam (Primary Care) Vital Signs: Last Vital Signs Pulse 80 10/13/25 12:36 BP 124/68 10/13/25 12:36 Pulse Ox 98 10/13/25 12:36 Oxygen Delivery Method Room Air 10/13/25 12:36 BMI result Body Mass Index 21.6 Tobacco/Smoking Status: Tobacco use Status Tobacco use date assessed 06/29/25 10/13/25 12:42 Patient Tobacco Use Status Never used Tobacco 10/13/25 12:42 Tobacco use type Cigarette 10/13/25 12:42 e-Cigarette/Vaping Use Never Used 10/13/25 12:42 PHQ-9: PHQ-9 Score PHQ-9: Total score 5 10/13/25 12:42 Depression Screening Interpretation: Positive Thrive Assessment: Date of Thrive Assessment Date Thrive assessed 02/09/25 10/13/25 12:42 Currently or been in a relationship where the following occur: I choose not to answer Const General: No confusion Orientation/consciousness: No confusion HENMT Head: Yes normocephalic Ears: external ears normal and TM's normal bilaterally Face and sinus: Yes normal facial exam Mouth: moist mucous membranes Throat: Yes tonsils normal Eyes Conjunctivae: conjunctivae normal Pupils: Equal, round and reactive pupils present and Pupil accommodation reflex normal Direct Ophthalmoscopy: normal light reflex Neck Neck: No lymphadenopathy Thyroid: Thyroid normal Chest Chest palpation & inspection: normal inspection of the chest Resp Effort & Inspection: normal respiratory effort and no audible wheezes Auscultation: clear to auscultation bilaterally, no crackles, no wheezes and lung sounds not diminished Cardio Rate: regular rate Rhythm: regular rhythm Peripheral pulses: radial pulses present and dorsalis pedis present GI Other: guaiac negative prostate N Palpation (GI): no masses Auscultation: normal bowel sounds and normoactive bowel sounds Male General Exam: Yes normal external exam Skin General skin exam: no rashes or lesions noted Rashes: no rashes Neuro General: No confusion Cranial nerves: Yes Equal, round and reactive pupils present and Yes Normal hearing present Cognition (Neuro): normal cognition Gait exam (Neuro): Normal gait present Motor exam (neuro): 5/5 motor strength present throughout Deep tendon reflexes (DTR's): Right brachioradialis reflex intensity grade: 2+, Left brachioradialis reflex intensity grade: 2+, Right patellar reflex intensity grade: 2+ and Left patellar reflex intensity grade: 2+ Extrem General: No edema Coding Level of Care Code Est Pt Prev Care 40-64y(98048) Diagnoses Annual physical exam Z00.00 Insomnia G47.00 Gastric erosions K25.9 Generalized anxiety disorder F41.1 Impaired glucose tolerance R73.02 Hypercholesterolemia E78.00 Assessment & Plan Assessment & Plan (1) Annual physical exam: Code(s): Z00.00 - Encounter for general adult medical examination without abnormal findings Category: Medical Plan: Patient is advised to eat healthy, keep well hydrated, keep active and have adequate sleep. (2) Insomnia: Code(s): G47.00 - Insomnia, unspecified Category: Medical (3) Gastric erosions: Code(s): K25.9 - Gastric ulcer, unspecified as acute or chronic, without hemorrhage or perforation Category: Medical Plan: Avoid the foods that causes that usually spicy foods, tomato products, juices, coffee, soda and foods that your sensitive to. After eating do not lie down, allow 3-4 hours before in lie down. And keep the head of bed above 30 degrees to avoid the acid from going up. Patient has a schedule for endoscopy next week (4) Generalized anxiety disorder: Code(s): F41.1 - Generalized anxiety disorder Category: Medical Plan: Stable (5) Impaired glucose tolerance: Code(s): R73.02 - Impaired glucose tolerance (oral) Category: Medical Plan: Decrease the amount of carbohydrate intake, pasta, bread, rice and potatoes are all sugar and that is aside from all the sweet stuff, remember that fruits are good but they are Sweet also. (6) Hypercholesterolemia: Code(s): E78.00 - Pure hypercholesterolemia, unspecified Category: Medical Plan: Avoid fried foods, chicken skin, eggs, butter margarine, pastries and meat. Be it pork or beef they have a lot of cholesterol Plan History of Present Illness The patient is a 55-year-old male presenting for a physical exam with a past medical history of hypercholesterolemia, GERD, insomnia, and generalized anxiety disorder. He reports losing 4 pounds since his last visit and engages in hiking on hills for exercise. The patient has impaired glucose tolerance, with recent lab work showing a fasting glucose of 104 and a hemoglobin A1c of 6.0. His HbA1c has been trending upward since 2022, with previous values of 5.3, 5.6, and 5.7. His diet is mostly vegetarian, and he reports consuming rice, which he has been advised is a significant source of sugar. For hypercholesterolemia, his LDL cholesterol has shown consistent improvement, with values decreasing from 164 to 153, 146, and most recently 136. Regarding his GERD, he has a history of dysphagia, and an upper GI series in October 2018 showed trace reflux without a hiatal hernia but revealed gastric erosive changes. He currently takes famotidine once nightly and experiences heartburn about once a week. An endoscopy is scheduled for next week. Several years of lab work have shown a stable mild leukopenia, with a recent white blood cell count of 4.2. The patient had a fall on Saturday while hiking, where he slipped on leaves and hit his mouth, chin, and nose. He experienced nasal swelling, which has since bruised slightly, and had some bleeding from his lip, but his teeth were unaffected and he had no nasal bleeding. For insomnia, he takes cyclobenzaprine every night, which also helps with daytime aches. He has known allergies to penicillin and erythromycin. His last colonoscopy was in 2020. Health Maintenance The patient was advised to obtain his annual influenza vaccine. A discussion was held regarding the shingles vaccine, which is a two-shot series, and it was recommended. He was also counseled to schedule an eye examination, as his last one was prior to 2019. Social History - Diet: The patient is mostly vegetarian and cooks most meals at home. - Nutritional Intake: He eats rice, quinoa, oatmeal with nuts and raisins, baked tofu, and various vegetables. - Sugar Intake: Reports limiting sweets to one cookie per week and does not consume candy or juice. - Fluid Intake: Drinks one cup of coffee with cream, herbal tea, water, and occasional coconut water. - Exercise: He is active, engaging in hiking on hills and tracking his steps. - Substance Use: Denies use of energy drinks. Review of Systems - Constitutional: Denies fevers. - Eyes: Reports finding it harder to read. - ENT: Reports recent facial trauma with residual nasal swelling, bruising, and pain. - Cardiovascular: Denies chest heaviness or discomfort. - Respiratory: Denies waking up short of breath. - Gastrointestinal: Reports occasional heartburn, about once a week. - Gastrointestinal: Reports good bowel movements. - Gastrointestinal: Denies nausea, vomiting, constipation, diarrhea, or blood in stools. - Genitourinary: Reports waking at most once per night to urinate. - Musculoskeletal: Reports generalized aches if he does not take his nightly cyclobenzaprine. Physical Exam General: Cooperative, healthy appearing, comfortable, no acute distress and well developed Orientation: Patient oriented x3 Limitations: No limitations Head: Normal to inspection Ears: Hearing grossly normal bilaterally Nose: Swelling and slight bruising noted, no bleeding Face and sinus: Bruising on chin and mouth, lip bleeding noted, no teeth affected Eyes: Appearance normal, both eyes and all related structures Neck: Normal visual inspection and Yes full ROM Respiratory: Normal respiratory effort and able to speak in complete sentences. Clear to auscultation bilaterally Cardiovascular: Regular rate and rhythm. Normal S1 and S2 GI: Normal to inspection. Soft to palpation and nontender Skin: No rashes or lesions noted Neuro: Patient oriented x3 Extremities: Normal to inspection Results - Labs: - CBC from Nov 10: Mild leukopenia (WBC 4.2), not anemic, normal platelet count. - CMP from Oct 11: Normal electrolytes and renal function. - Glucose: Fasting sugar elevated at 104 mg/dL. - Hemoglobin A1c: 6.0%. - Liver Function Tests: Normal. - Lipid Panel: LDL cholesterol is 136 mg/dL. - Thyroid function: Normal. - Urinalysis: Negative. - Tests and Diagnostics: - Prior Upper GI Series (Oct): Showed trace reflux without hiatal hernia but with gastric erosive changes. Plan Patient was informed and verbally consented to the use of an ambient scribe for clinic note documentation during this visit. 1. Prediabetes The patient's glycemic control is worsening, with a recent HbA1c of 6.0, an increase from previous values, and a fasting glucose of 104 mg/dL. He is now classified as prediabetic. The plan includes extensive counseling on dietary modifications to reduce carbohydrate intake, particularly rice, bread, and potatoes, and encouragement to continue regular exercise. No medication is indicated at this time. Will recheck fasting bloodwork, including HbA1c, in six months. 2. Hypercholesterolemia The patient's LDL cholesterol has improved, decreasing to 136 mg/dL from 146 mg/dL, but it remains slightly above the target of less than 130 mg/dL. The plan is to continue current lifestyle modifications including diet and exercise, with a follow-up lipid panel in six months. 3. Gastroesophageal Reflux Disease The patient reports ongoing weekly heartburn despite nightly use of famotidine, with a history of gastric erosions seen on a prior upper GI series. The patient is scheduled for an endoscopy next week with Dr. Foss, who will also test for H. pylori. A decision on whether to switch to a proton pump inhibitor like omeprazole will be deferred until after the procedure. 4. Stable Mild Leukopenia The patient has a long-standing, stable mild leukopenia, with a recent WBC count of 4.2. As this is a chronic and stable finding, the plan is to continue monitoring with routine blood work, with no further investigation needed at this time. Discussion Notes I had a detailed discussion with the patient regarding his recent lab results. I explained that his hemoglobin A1c has risen to 6.0%, which now places him in the prediabetic category. We discussed the importance of dietary changes, specifically reducing carbohydrates like rice, to prevent progression to type 2 diabetes. I acknowledged his improving cholesterol levels but noted his LDL is still slightly above our goal. We agreed on a plan to repeat his fasting blood work in six months to monitor these trends. I also discussed the upcoming endoscopy for his GERD and the plan to test for H. pylori. I recommended he proceed with the influenza vaccine and strongly advised the shingles vaccine series, explaining the potential side effects such as injection site pain and flu-like symptoms. The patient was advised to schedule a routine eye exam. He was instructed to contact me if any problems arise in the interim. Patient Instructions - Continue to focus on your diet, especially by reducing your intake of sugary foods and carbohydrates like rice, bread, and potatoes. - Maintain your regular exercise routine, such as hiking. - You will need to get fasting blood work done in about six months to recheck your blood sugar and cholesterol levels. - Please proceed with your scheduled endoscopy next week to check on your stomach and reflux issues. - Get your flu shot this season. - I recommend you get the shingles vaccine (Shingrix). It is a series of two shots given 2 to 6 months apart. - Schedule an eye exam, as it has been several years since your last one. - Please let me know if you have any problems or concerns before your next appointment. Orders: Orders Hemoglobin A1c 6 Months R73.02 - Impaired glucose tolerance (oral) Comprehensive Met. Panel 6 Months R73.02 - Impaired glucose tolerance (oral) Complete Blood Count Auto Diff 6 Months R73.02 - Impaired glucose tolerance (oral) Lipid Panel 6 Months E78.00 - Pure hypercholesterolemia, unspecified, R73.02 - Impaired glucose tolerance (oral)
--- OUTSIDE RECORDS SUMMARY | 2025-10-13 15:08 | XMS_ITS | Patient Health Record ---
[facility] [place] Address [address] [place] [address] Care Team Providers Care Foundation Relations Manager Name Role Phone Lala Parada Primary Care Provider Unavailkarri e Destiny Hurt Unavailable [phone] Allergies Allergen (clinical drug ingredient) Drug/Non Drug [...] Problem Neoplasm of uncertain behavior of skin (86949149) Neoplasm of uncertain behavior of skin (238.2) Active confirmed Problem Pain in limb (22489587) Pain in Limb (729.5) Active confirmed Problem Hammer toe (021376578) Hammer toe (735.4) Active confirmed Plan Of Treatment Pending Test Test Name Order Date [id number] Destruction, -03/10/2013 [id number] Destruction, -03/30/2013 [id number] Destruction, 12-1505/01/2013 [id number]-Juyy Destruction, -05/14/2013 61298- Biopsy of skin lesion 02/23/2013 Insurance Providers Payer Name Payer Address Payer Phone Subscriber Number Group Number Insured Name Patient Relationship to Insured Coverage Start Date Coverage End Date [facility] [employer] [facility] [address] [place] [address] [id number] Pradip Dong Self - patient is the insured Medical (General) History Medical History History ICD Code chicken pox
--- OUTSIDE RECORDS SUMMARY | 2025-10-13 15:08 | XMS_ITS | Patient Health Record ---
Author Organization [facility] Address [address] [place] [id number] Care Team Providers Care Molecular Spectroscopist Name Role Phone Lala Parada MD Primary [...] Status Risk Notes Problem Colon cancer screening (865216423) Colon cancer screening (Z12.11) Active confirmed Problem Rectal pain (03218005) Rectal pain (K62.89) Active confirmed Problem Gastroesophageal reflux disease (732894008) GERD (gastroesopha geal reflux disease) (K21.9) Active confirmed Problem Abnormal UGI series (R93.3) Active confirmed Vital Signs Temperature 97 degrees Fahrenheit 09/30/2025 Blood pressure diastolic 01 mm Hg 09/30/2025 Height 72 in 09/30/2025 Blood pressure systolic 001 mm Hg 09/30/2025 Weight 162.6 lbs 09/30/2025 BMI 22.05 kg/m2 09/30/2025 Encounters Encounter Location Date Provider Diagnosis [facility] [address] [place] [address] 09/30/2025 Nicho Foss Jr GERD (gastroesophageal reflux disease) K21.9 and Abnormal UGI series R93.3 Assessments Encounter Date Diagnosis (ICD Code) Assessment Notes Treatment Notes Treatment Clinical Notes Section Notes 09/30/2025 GERD (gastroesophag eal reflux disease) (ICD-10 - K21.9) We discussed his symptoms today. We recommended diet, lifestyle modifications, and weight management regarding the treatment of reflux. Further evaluation with endoscopy will be arranged because of his abnormal upper GI series. He understands risks and benefits and agrees to proceed. This will be scheduled at his convenience. 09/30/2025 Abnormal UGI series (ICD-10 - R93.3) We discussed his symptoms today. We recommended diet, lifestyle modifications, and weight management regarding the treatment of reflux. Further evaluation with endoscopy will be arranged because of his abnormal upper GI series. He understands risks and benefits and agrees to proceed. This will be scheduled at his convenience. Plan Of Treatment Future Test Test Name Order Date COLONOSCOPY 10/09/2021 UPPER GI ENDOSCOPY 09/30/2025 Next Appt Details Provider Name:Nicho karimi Jr, 10/19/2025 11:50:00 AM, [address] [place] [address] , [place], [place], [phone], Insurance Providers Payer Name Payer Address Payer Phone Subscriber Number Group Number Insured Name Patient Relationship to Insured Coverage Start Date Coverage End Date [facility] [address] [address] [place], [place] [id number] TATE SWAN Self - patient is the insured Medical (General) History Medical History History ICD Code Anxiety Leukopenia Gastroesophageal reflux disease Rectal pain Fibromyalgia Colonoscopy 11/21, normal in cluding biopsies of the terminal ileum and sigmoid, 10-year follow-up. Surgical History Surgery Date(Month/Year)
--- OUTSIDE RECORDS SUMMARY | 2025-10-13 15:08 | XMS_ITS | Clinical Summary ---
Author Organization [facility] Address [address] [address] Phone Care Team Providers Care Major Donor Coordinator Name Role Phone Lala Parada MD Primary Care Provider Allergies Active Allergy Reactions Criticality Noted Date [...] exists COVID-19 VACCINE ( season) 2025 03/15/2021 RSV VACCINE (1 - 1-dose 75+ series) 2047 HEPATITIS A VACCINES Aged Out No long er eligible based on patient's age to complete this topic HIB VACCINES Aged Out No longer eligi ble based on patient's age to complete this topic IPV VACCINES Aged Out No longer eligi ble based on patient's age to complete this topic MENINGOCOCCAL VACCINES (ACWY) Aged Out No longer eligible based on patient's age to complete this topic MENINGOCOCCAL VACCINES (B) Aged Out N o longer eligible based on patient's age to complete this topic Medical Devices Not on file Insurance NON [facility]SP[facility] PCP [employer] [place] [place] [address] NON NSPG PCP [employer] [facility] NON NSPG PCP [employer] [facility] NON [facility]SPG PCP [employer] [facility] NON NSPG PCP [employer] NON NSPG PCP [employer] Care Teams Major Donor Coordinator Relationship Specialty Start Date End Date Lala Parada MD [address] [place] [phone] PCP - General 06/12/19 Additional Source Comments The information contained in this document represents components of the legal health record. It is not the complete legal health record.[facility]
--- OUTSIDE RECORDS SUMMARY | 2025-10-13 15:08 | XMS_ITS | Encounter Summary ---
Author Organization [facility] Address [address] [place] [address] Phone Care Team Providers Care Counter Tender Name Role Phone Lala Parada MD Primary Care Provider [phone] Reason for Referral * Speech Therapy (Routine) - Closed Specialty Diagnoses / Procedures Referred By Contac t Referred To Contact Speech Pathology Diagnoses Encounter for rehabilitation Shahram Hazel MD Phone: tel: fax: [facility] [address] [place] [address] Phone: tel: Referral ID Status Reason Start Date Expiration Date Visits Re quested Visits Authorized [id number] Closed 06/09/2019 12/01/2020 6 6 Encounter Details Date Type Department Care Team (Latest Contact Info) Description 06/09/2019 Transcribe Orders [facility] [address] [place] [address] Shahram Hazel MD [facility] [address] [place] [address] Encounter for rehabilitation (Primary Dx) Social History [...] Diagnoses Orde r Schedule Ambulatory referral to [facility] Speech Language Pathology Outpatient Referral Routine Encounter for rehabilitation Ordered: 06/09/2019 documented as of this encounter Visit Diagnoses Diagnosis Encounter for rehabilitation- Primary documented in this encounter Care Teams Counter Tender Relationship Specialty Start Date End Date Lala Parada MD [address] [place] [address] PCP - General 06/12/19 documented as of this encounter Additional Source Comments The information contained in this document represents components of the legal health record. It is not the complete legal health record.[facility]
== END 2025-10-13 13:15 | disposition home or self-care (01) ==
LOC: HO.HMCH 12:29
PROVIDERS: PCP Internal Medicine; Visit Provider Internal Medicine
DX: Z00.00 Encounter for general adult medical examination without abnormal findings (principal); G47.00 Insomnia, unspecified; K25.9 Gastric ulcer, unspecified as acute or chronic, without hemorrhage or perforation; F41.1 Generalized anxiety disorder; R73.02 Impaired glucose tolerance (oral); E78.00 Pure hypercholesterolemia, unspecified

== ENCOUNTER → 2025-10-13 12:29 | Outpatient (BNVA) | payer OTHER, SELFPAY | PROVIDERS: PCP Internal Medicine; Visit Provider Internal Medicine | DX: Z00.00 Encounter for general adult medical examination without abnormal findings (principal); G47.00 Insomnia, unspecified; K25.9 Gastric ulcer, unspecified as acute or chronic, without hemorrhage or perforation; F41.1 Generalized anxiety disorder; E78.00 Pure hypercholesterolemia, unspecified; R73.03 Prediabetes; K21.9 Gastro-esophageal reflux disease without esophagitis; D72.819 Decreased white blood cell count, unspecified | CPT/HCPCS: 99396 ==

== ENCOUNTER 2025-10-19 07:47 | Day surgery (SDC) | payer OTHER, SELFPAY ==
--- OUTSIDE RECORDS SUMMARY | 2025-09-30 17:53 | XMS_ITS | Patient Health Record ---
Author Organization [facility] [place] Address [address] [place] [address] Care Team Providers Care Pairer Inspector Name Role Phone Lala Parada Primary Care Provider Unavailkarri e Destiny Hurt Unavailable [phone] Allergies Allergen (clinical drug ingredient) Drug/Non Drug [...] Problem Neoplasm of uncertain behavior of skin (73017770) Neoplasm of uncertain behavior of skin (238.2) Active confirmed Problem Pain in limb (68440299) Pain in Limb (729.5) Active confirmed Problem Hammer toe (241565347) Hammer toe (735.4) Active confirmed Plan Of Treatment Pending Test Test Name Order Date [id number]-Grgi Destruction, -03/10/2013 87154-Fivn Destruction, -03/30/2013 44901-Uxky Destruction, 12-1505/01/2013 19172-Skoi Destruction, -05/14/2013 98068- Biopsy of skin lesion 02/23/2013 Insurance Providers Payer Name Payer Address Payer Phone Subscriber Number Group Number Insured Name Patient Relationship to Insured Coverage Start Date Coverage End Date [facility] [employer] [facility] [address] [place] [phone] [id number] Pradip Dong Self - patient is the insured Medical (General) History Medical History History ICD Code chicken pox
--- OUTSIDE RECORDS SUMMARY | 2025-09-30 17:53 | XMS_ITS | Encounter Summary ---
Author Organization [facility] Address [address] [place] [address] Phone Care Team Providers Care Vice President Compliance Name Role Phone Lala Parada MD Primary Care Provider [phone] Reason for Referral * Speech Therapy (Routine) - Closed Specialty Diagnoses / Procedures Referred By Contac t Referred To Contact Speech Pathology Diagnoses Encounter for rehabilitation Shahram Hazel MD Phone: tel: fax: [facility] [address] [place] [address] Phone: tel: Referral ID Status Reason Start Date Expiration Date Visits Re quested Visits Authorized [id number] Closed 06/09/2019 12/01/2020 6 6 Encounter Details Date Type Department Care Team (Latest Contact Info) Description 06/09/2019 Transcribe Orders [facility] [address] [place] [address] Shahram [facility]el [facility] [address] [place] [phone] Encounter for rehabilitation (Primary Dx) Social History [...] Diagnoses Orde r Schedule Ambulatory referral to [facility] Speech Language Pathology Outpatient Referral Routine Encounter for rehabilitation Ordered: 06/09/2019 documented as of this encounter Visit Diagnoses Diagnosis Encounter for rehabilitation- Primary documented in this encounter Care Teams Vice President Compliance Relationship Specialty Start Date End Date Lala Parada MD [address] [place] [address] PCP - General 06/12/19 documented as of this encounter Additional Source Comments The information contained in this document represents components of the legal health record. It is not the complete legal health record.[facility]
--- OUTSIDE RECORDS SUMMARY | 2025-09-30 17:53 | XMS_ITS | Clinical Summary ---
Author Organization [facility] Address [address] [address] Phone Care Team Providers Care Treasury Associate Name Role Phone Lala Parada MD Primary Care Provider [phone] Allergies Active Allergy Reactions Criticality Noted Date [...] 09/15/2019, 09/12/2018, Additional history exists COVID-19 VACCINE (2024- season) 2025 03/15/2021 RSV VACCINE (1 - 1-dose 75+ series) 2047 HEPATITIS A VACCINES Aged Out No long [...] topic Medical Devices Not on file [place] [address] [place] [address] NON NSPG PCP [employer] [facility] NON NSPG PCP [employer] NON NSPG PCP [employer] NON NSPG PCP [employer] NON NSPG PCP [employer] NON NSPG PCP [employer] Care Teams Treasury Associate Relationship Specialty Start Date End Date Lala Parada MD [address] [place] [address] [address] [place] [phone] PCP - General 06/12/19 Additional Source Comments The information contained in this document represents components of the legal health record. It is not the complete legal health record.[facility]
--- OUTSIDE RECORDS SUMMARY | 2025-09-30 17:53 | XMS_ITS | Patient Health Record ---
Author Organization [facility] Address [address] [place] [phone] Care Team Providers Care Aurist Name Role Phone Lala Parada MD Primary [...] at bedtime as needed Orally Once a day; Duration: 30 day(s) Not-Taking Vitamin D (Ergocalciferol) 50 MCG (1999 UT) 1 capsule Orally Once a day; Duration: 30 day(s) Not-Taking ZyrTEC Active Famotidine 20 MG 1 tablet at bedtime as needed Orally Once a day; Duration: 30 day(s) Active MiraLax (colon prep) 17 GM/SCOOP mixed with Gatorade or Crystal Light Orally begin at 5:00 p.m. the day before the procedure; Duration: 1 day 10/09/2021 Not-Taking Multivitamin - 1 tablet Orally Once a day; Duration: 30 day(s) Active Cyclobenzaprine HCl 10 MG 1 tablet at be dtime as needed Orally Once a day; Duration: 30 day(s) Active Immunizations Vaccine Route Administration Date Status Comme nts Influenza Unknown 09/19/2021 Administered Influenza Unknown 09/30/2024 Administered Social History AUDIT-C (Standard) Question Answer Notes Did you have a drink contain ing alcohol in the past year? Yes How often did you have a dri nk containing alcohol in the past year? Monthly or less (1 point) How many drinks did you have on a typical day when you were drinking in the past year? 1 or 2 drinks (0 point) How often did you have six o r more drinks on one occasion in the past year? Never (0 point) Points 1 Interpretation Negative Problems Problem Type SNOMED Code ICD Code Onset Dates Problem Status W/U Status Risk Notes Problem Colon cancer screening (787072859) Colon cancer screening (Z12.11) Active confirmed Problem Rectal pain (83808065) Rectal pain (K62.89) Active confirmed Problem Gastroesophageal reflux disease (067598557) GERD (gastroesopha geal reflux disease) (K21.9) Active confirmed Problem Abnormal UGI series (R93.3) Active confirmed Vital Signs Temperature 97 degrees Fahrenheit 09/30/2025 Blood pressure diastolic 01 mm Hg 09/30/2025 Height 72 in 09/30/2025 Blood pressure systolic 001 mm Hg 09/30/2025 Weight 162.6 lbs 09/30/2025 BMI 22.05 kg/m2 09/30/2025 Encounters Encounter Location Date Provider [facility] [address] [place] [address] 09/30/2025 Nicho Foss Jr GERD (gastroesophageal reflux disease) K21.9 and Abnormal UGI series R93.3 Assessments Encounter Date Diagnosis (ICD Code) Assessment Notes Treatment Notes Treatment Clinical Notes Section Notes 09/30/2025 GERD (gastroesophage al reflux disease) (ICD-10 - K21.9) 09/30/2025 Abnormal UGI series (ICD-10 - R93.3) Plan Of Treatment Future Test Test Name Order Date COLONOSCOPY 10/09/2021 UPPER GI ENDOSCOPY 09/30/2025 Next Appt Details Provider Name:Nicho karimi Jr, 10/19/2025 01:30:00 PM, [address] [facility] , [place], [place], [id number], Insurance Providers Payer Name Payer Address Payer Phone Subscriber Number Group Number Insured Name Patient Relationship to Insured Coverage Start Date Coverage End Date [facility] [address] [address] [place], [place] [id number] TATE SWAN Self - patient is the insured Medical (General) History Medical History History ICD Code Anxiety Leukopenia Gastroesophageal reflux disease Rectal pain Surgical History Surgery Date(Month/Year)
[2025-10-15 12:27] VITALS: BMI 22.1
--- NOTE | 2025-10-15 13:18 | HO.ANESPROP2 ---
Documented by User: Regla Domínguez NP 10/15/25 13:21 HPI - Anesthesia Eval Consult details Narrative: 55yo M for Upper Endoscopy MVP - no echo avail for review PMFSH Active Problems Active Problems: All Active Problems Gastric erosions (Acute) COVID-19 virus infection (Acute) Multiple pigmented nevi (Acute) Hematochezia (Acute) Allergic reaction (Acute) Fibromyalgia (Acute) Eczema (Acute) Impaired glucose tolerance (Acute) Annual physical exam (Acute) Scrotal rash (Acute) Plantar wart of left foot (Acute) Eczema (Acute) Generalized anxiety disorder (Acute) Patellofemoral arthritis (Acute) Allergic rhinitis (Acute) GERD (gastroesophageal reflux disease) (Acute) Insomnia (Acute) Hypercholesterolemia (Acute) Past Medical History Medical History Arrhythmia Mitral valve prolapse Tinea cruris Hip pain, right Colon cancer screening Tinnitus Allergic rhinitis GERD (gastroesophageal reflux disease) Reactive airway disease Insomnia Vitamin D deficiency Irritable bowel syndrome Hypercholesterolemia Family History Family History Father Skin cancer Mother No problems noted. Brother Bipolar disorder Brother Substance abuse Sister No problems noted. Sister No problems noted. Paternal Grandmother Colon cancer Paternal Aunt Colon cancer Paternal Grandfather Stomach cancer Family history of problems with anesthesia: No Surgical History Surgical History Hx of colonoscopy History of Problems with Anesthesia: No Social History Social History Housing: Apartment Alcohol intake: current Alcohol intake frequency: holidays/special occasions only Comment: once a month 1 beer Patient Tobacco Use Status: Never used Tobacco Tobacco use type: Cigarette e-Cigarette/Vaping Use: Never Used Second Hand Smoke Exposure: No Advance Directives: No Advance Directives Information Provided: Yes service: No Current occupational status: employed Cognitive needs: No Hearing needs: No Vision needs: No Meds Allergies Allergy/AdvReac Type Severity Reaction Status Date / Time penicillin V Allergy Severe Rash Verified 10/19/25 08:17 amoxicillin (AMOXICILLIN) Allergy Intermediate RASH Verified 10/19/25 08:17 erythromycin base Allergy Intermediate Joint Pain Verified 10/19/25 08:17 (ERYTHROMYCIN BASE) Home Medications ?Medication ?Instructions ?Recorded ?Confirmed ?Last Taken ?Type cetirizine 10 mg tablet (Zyrtec) 10 mg PO DAILY PRN allergies 06/19/21 10/15/25 Unknown History fluticasone propionate 50 2 spray intranasal DAILY 06/19/21 10/15/25 Unknown History mcg/actuation nasal spray,suspension multivitamin 1 tab PO DAILY 06/19/21 10/15/25 Unknown History famotidine 20 mg tablet (Acid 20 mg PO BEDTIME 06/29/25 10/15/25 Unknown History Life Sciences Instructor (famotidine)) Exam Height,Weight and Vital Signs: Height 6 ft Weight 73.754 kg Assessment and Plan Assessment Anesthesia Assessment: Chart Reviewed Final Anesthetic Review Family History of Problems with Anesthesia: No History of Problems with Anesthesia: No Documented by User: Radha Pereira MD 10/19/25 08:20 [facility] Past Medical History Medical History Arrhythmia Mitral valve prolapse Tinea cruris Hip pain, right Colon cancer screening Tinnitus Allergic rhinitis GERD (gastroesophageal reflux disease) Reactive airway disease Insomnia Vitamin D deficiency Irritable bowel syndrome Hypercholesterolemia Family History Family History Father Skin cancer Mother No problems noted. Brother Bipolar disorder Brother Substance abuse Sister No problems noted. Sister No problems noted. Paternal Grandmother Colon cancer Paternal Aunt Colon cancer Paternal Grandfather Stomach cancer Surgical History Surgical History Hx of colonoscopy Social History Social History Housing: Apartment Alcohol intake: current Alcohol intake frequency: holidays/special occasions only Comment: once a month 1 beer Patient Tobacco Use Status: Never used Tobacco Tobacco use type: Cigarette e-Cigarette/Vaping Use: Never Used Second Hand Smoke Exposure: No Advance Directives: No Advance Directives Information Provided: Yes service: No Current occupational status: employed Cognitive needs: No Hearing needs: No Vision needs: No Meds Allergies Allergy/AdvReac Type Severity Reaction Status Date / Time penicillin V Allergy Severe Rash Verified 10/19/25 08:17 amoxicillin (AMOXICILLIN) Allergy Intermediate RASH Verified 10/19/25 08:17 erythromycin base Allergy Intermediate Joint Pain Verified 10/19/25 08:17 (ERYTHROMYCIN BASE) Home Medications ?Medication ?Instructions ?Recorded ?Confirmed ?Last Taken ?Type cetirizine 10 mg tablet (Zyrtec) 10 mg PO DAILY PRN allergies 06/19/21 10/15/25 Unknown History fluticasone propionate 50 2 spray intranasal DAILY 06/19/21 10/15/25 Unknown History mcg/actuation nasal spray,suspension multivitamin 1 tab PO DAILY 06/19/21 10/15/25 Unknown History famotidine 20 mg tablet (Acid 20 mg PO BEDTIME 06/29/25 10/15/25 Unknown History Life Sciences Instructor (famotidine)) Exam Airway Mallampati Class: III (long neck) TM Dist: >3cm Neck ROM: Full Loose/Missing/Broken Teeth: No Heart: RRR Lungs: CTA Assessment and Plan Assessment Anesthesia Assessment: Anesthesia Plan Discussed Final Anesthetic Review NPO: Yes ASA Class: II Final Preanesthetic Review: Meds/Allgs Chart Reviewed, Consent Obtained/Reviewed and Anes Risks/Benef Reviewed Anesthetic Plan Anesthetic Plan: MAC: Disposition: Standard PACU
[2025-10-19] MEDS: Lactated Ringers 1,000 ML 100 ML IVCONT (08:08)
[2025-10-19 08:38] VITALS: BP 152/96; PULSE 89; RESP 18; TEMP 36.7; O2SAT 96
[2025-10-19 08:39] VITALS: BMI 23.5
--- NOTE | 2025-10-19 08:43 | MHC.SHP ---
Pre-Procedural Eval Section A - 24 Hr Update-Section A only Date of Service: 10/19/25 The patient is an INPATIENT: Yes Changes since office visit: No Cold of Flu in the past 2 weeks, No New Medical Problems, No Changes in Medication and No Patient answered all questions The patient has been examined within 24 hours of the surgical procedure. The History & Physical has been completed within 30 days and I have reviewed it.: Yes Section B - Complete if H&P > 30 days Chief Complaint: gerd,abnormal findings Allergies: Allergies Allergy/AdvReac Type Severity Reaction Status Date / Time penicillin V Allergy Severe Rash Verified 10/19/25 08:17 amoxicillin (AMOXICILLIN) Allergy Intermediate RASH Verified 10/19/25 08:17 erythromycin base Allergy Intermediate Joint Pain Verified 10/19/25 08:17 (ERYTHROMYCIN BASE) Plan I have reviewed the history and physical and performed a pertinent physical examination on my patient. No changes have occurred unless specified. Time Spent With Patient Time: Total time managing care of this patient today ____ minutes.
[2025-10-19 09:09] VITALS: BP 106/69; PULSE 78; RESP 15; TEMP 37.1; O2SAT 96
[2025-10-19 09:24] VITALS: BP 120/79; PULSE 73; RESP 18; TEMP 36.8; O2SAT 98
[2025-10-19 09:39] VITALS: BP 116/81; PULSE 79; RESP 20; TEMP 36.8; O2SAT 96
--- NOTE | 2025-10-19 20:30 | OP_ITS ---
DATE OF SERVICE: 10/19/2025 SURGEON: Nicho Foss MD INDICATIONS: Abnormal upper GI series and gastroesophageal reflux disease. PREOPERATIVE DIAGNOSIS: POSTOPERATIVE DIAGNOSIS: PROCEDURE PERFORMED: ESTIMATED BLOOD LOSS: COMPLICATIONS: ANESTHESIA: Monitored anesthesia care. ASSISTANTS: SPECIMENS: PROCEDURE: Upper endoscopy with biopsy. DESCRIPTION OF PROCEDURE: The history and physical was performed. The risks and benefits of the procedure were explained to the patient. Informed consent was obtained. The patient was placed in the left lateral decubitus position. The Olympus video gastroscope was introduced into the esophagus, stomach, and duodenum. Examination was performed. The scope was removed. He tolerated the procedure well, and was returned to the recovery area in stable condition. FINDINGS: Esophagus: The esophagus was normal. The EG junction was slightly irregular. This was biopsied. There was no esophagitis. Stomach: The stomach showed no evidence of masses, ulcers, or polyps. Antral biopsies were obtained to evaluate for H pylori. Duodenum: The bulb and 2nd portion were normal. Biopsies were obtained from the 2nd portion to rule out malabsorption. IMPRESSION: Normal upper endoscopy. RECOMMENDATION: Follow up the biopsy results. MD NEDA Cortés/SOY / [phone]
== END 2025-10-19 11:21 | disposition home or self-care (01) ==
PROVIDERS: PCP Internal Medicine; Visit Provider Internal Medicine Gastroenterology
PROC: 0DJ08ZZ Inspection of Upper Intestinal Tract, Via Natural or Artificial Opening Endoscopic (ICD-10-PCS; CPT 43235; principal; 2025-10-19 09:20)
DX: R93.3 Abnormal findings on diagnostic imaging of other parts of digestive tract (principal); K21.9 Gastro-esophageal reflux disease without esophagitis; K31.A15 Gastric intestinal metaplasia without dysplasia, involving multiple sites
CPT/HCPCS: 43239; 88305; 88313; 88342; J2003; J2250; J2704; J3010

== ENCOUNTER 2025-11-17 11:47 | Outpatient (REF) | payer OTHER, SELFPAY ==
--- OUTSIDE RECORDS SUMMARY | 2025-10-19 06:50 | XMS_ITS ---
Author Organization [facility] Address [address] [place] [address] Care Team Providers Care Airport Control Operator Name Role Phone Lala Parada MD Primary Care Provider Nicho Marin Jr Unavailable REASON FOR VISIT gerd,abn ugi series Encounters Encounter Location Date Provider Diagnosis [facility] Outpatient [address] [place] [phone] 10/19/2025 Nicho Foss Jr Chronic GERD K21.9 and Abn findings-GI tract R93.3 Assessments Encounter Date Diagnosis (ICD Code) Assessment Notes Treatment Notes Treatment Clinical Notes Section Notes 10/19/2025 Chronic GERD (ICD-10 - K21.9) 10/19/2025 Abn findings-GI tract (ICD-10 - R93.3) Plan Of Treatment Next Appt Details Provider Name:Nicho karimi Jr, 04/26/2026 07:30:00 AM, [address] [place] [address], [phone], Progress Notes * LOKESH SWANNILSADOB:1970 (55 yo M)Acc No.[id number]:10/19/2025 EGD/MAC Patient: TATE JAQUEZ Provider: Jose De Jesus Foss MD :1970 A ge:55 Y S ex:Male Date:10/19/2025 Address:[address] [place] [address] Pcp:Lala Parada MD Subjective: * Chief Complaints: * G erd,abn ugi series Assessment: * Assessment: 1. C hronic GERD - K21.9 (Primary) 2 . A bn findings-GI tract - R93.3 ? Plan: * Procedure Codes: 4 5380 COLONOSCOPY AND BIOPSY Billing Information: * Procedure Codes: 03208 COLONOSCOPY AND BIOPSY. * The named appointment provid er may or may not be the originator of this progress note, and it is not deemed complete until electronically signed by the appointment provider. Sign off status: Pending * Provider: Jose De Jesus Foss MD Date: 12/19/2024 Generated for Corina fung/Jaqueline/Jarredransmitting on: 01/18/2025 03:43 PM EST
[2025-11-17 12:36] LABS: Hematocrit 45.2 % (42.0-52.0); Hemoglobin 15.1 g/dl (14.0-18.0); Mean Corpuscular HGB Conc 33.4 g/dl (31.0-36.0); Mean Corpuscular Hemoglobin 29.6 pg (27.0-33.0); Mean Corpuscular Volume 88.6 fL (80.0-98.0); NRBC Abs Auto 0.000 X10*3/uL (0.0-0.012); NRBC Pct Auto 0.0 /100WBC (0.0-0.2); Platelet Count 275 X10*3/uL (160-400); Red Blood Count 5.10 X10*6/uL (4.60-5.80); White Blood Count 4.3 X10*3/uL (4.8-10.8)
[2025-11-17 13:10] LABS: Iron 90 mcg/dL (45-160); Percent Iron Saturation 32 % (15-50); Total Iron Binding Capacity 280 mcg/dL (228-428); Unsaturated Iron Binding 190 ug/dL
[2025-11-17 13:14] LABS: Ferritin 60 ng/mL (20-250)
--- OUTSIDE RECORDS SUMMARY | 2025-11-17 15:43 | XMS_ITS | Patient Health Record ---
Author Organization [facility] Address [address] [place] [address] Care Team Providers Care Smoking Tobacco Packing Machine Hand Name Role Phone Lala Parada MD Primary Care Provider Nicho Marin Jr Unavailable Allergies Allergen (clinical drug ingredient) Drug/Non Drug Allergy documented on EMR Reaction Allergy Type Onset Date Status amoxicillin Amoxicillin Unknown Drug Allergy Act indira erythromycin Erythromycin Unknown Drug Allergy A ctive Results Component Value Reference Range Flag Notes Complete Blood Count no Diff (Not yet reviewed by provider) Interpretation: Performing Lab:[facility], [address] [place] [phone] Notes/Report: White Blood Count 4.3 4.8-10.8 X10*3/uL L Red Blood Count 5.10 4.60-5.80 X10*6/uL N Hemoglobin 15.1 14.0-18.0 g/dl N Hematocrit 45.2 42.0-52.0 % N Mean Corpuscular Volume 88.6 80.0-98.0 fL N Mean Corpuscular Hemoglobin 29.6 27.0-33.0 pg N Mean Corpuscular HGB Conc 33.4 31.0-36.0 g/dl N Red Cell Distribution Width 12.1 11.0-16.0 % N Platelet Count 275 160-400 X10*3/uL Mean Platelet Volume 9.5 9.4-12.4 fL N NRBC Pct Auto 0.0 0.0-0.2 /100WBC N NRBC Abs Auto 0.000 0.0-0.012 X10*3/uL N IRON PROFILE (Not yet review ed by provider) Interpretation: Performing Lab:[facility], [address] [place] [phone] Notes/Report: Iron 90 45-160 mcg/dL N Total Iron Binding Capacity 280 228-428 mcg/dL N Percent Iron Saturation 32 15-50 % N Unsaturated Iron Binding 190 Ferritin (Not yet reviewed b y provider) Interpretation: Performing Lab:[facility], [address] [place] [phone] Notes/Report: Ferritin 60 20-250 ng/mL N Pathology Reviewed date:10/22/2025 03:19:10 PM Interpretation: Performing Lab:[facility], [address] [place] [phone] Notes/Report: Reason For Referral No Information Medications Medication SIG (Take, Route, Frequency, Duration) Notes Start Date End Date Status Melatonin 3 MG Tablet 1 tablet at bedtim e as needed Orally Once a day; Duration: 30 day(s) Not-Taking/P RN Vitamin D (Ergocalciferol) 50 MCG (2000 UT) Capsule 1 capsule Orally Once a day; Duration: 30 day(s) Not-Taking/P RN ZyrTEC Active Famotidine 20 MG Tablet 1 tablet at bedt karlene as needed Orally Once a day; Duration: 30 day(s) Active MiraLax (colon prep) 17 GM/SCOOP Powder mixed with Gatorade or Crystal Light Orally begin at 5:00 p.m. the day before the procedure; Duration: 1 day 10/09/2021 Not-Taking/PRN Multivitamin - Tablet 1 tablet Orally Once a day; Duration: 30 day(s) Active Cyclobenzaprine HCl 10 MG Tablet 1 tablet at bedtime as needed Orally Once a day; Duration: 30 day(s) Active Immunizations Vaccine Route Administration Date Status Comme nts Influenza Unknown 09/19/2021 Administered Influenza Unknown 09/30/2024 Administered Social History Social History Drug/Alcohol: Social Info Question Answer Notes AUDIT-C (Standard) Did you have a drink containing alcohol in the past year? Yes How often did you have a drink containing alcohol in the past year? Monthly or less (1 point) How many drinks did you have on a typical day when you were drinking in the past year? 1 or 2 drinks (0 point) How often did you have six or more drinks on one occasion in the past year? Never (0 point) Points 1 Interpretation Negative Additional Details Category Social Info Options Details Miscellaneous: Marital status: single Occupation: author/illustrat or Problems Problem Type SNOMED Code ICD Code Onset Dates Problem Status W/U Status Risk Notes Problem Colon cancer screening (740711433) Colon cancer screening (Z12.11) Active confirmed Problem Rectal pain (29696408) Rectal pain (K62.89) Active confirmed Problem Gastroesophageal reflux disease (213346550) GERD (gastroesophageal reflux disease) (K21.9) Active confirmed Problem Gastric intestinal metaplasia (65778331) Gastric intestinal metaplasia (K31.A0) Active confirmed Problem Abnormal endosco py of upper gastrointestinal tract (R93.3) Active confirmed Vital Signs Temperature 97 degrees Fahrenheit 09/30/2025 Blood pressure diastolic 01 mm Hg 09/30/2025 Height 72 in 09/30/2025 Blood pressure systolic 001 mm Hg 09/30/2025 Weight 162.6 lbs 09/30/2025 BMI 22.05 kg/m2 09/30/2025 Encounters Encounter Location Date Provider Diagnosis [facility] [address] [place] [phone] 10/19/2025 Nicho Foss Jr Chronic GERD K21.9 and Abn findings-GI tract R93.3 [facility] [address] [place] [phone] 09/30/2025 Nicho Foss Jr GERD (gastroesophageal reflux disease) K21.9 and Abnormal UGI series R93.3 [facility] [address] [place] [phone] 10/22/2025 Nicho Foss Jr Abnormal endoscopy of upper gastrointestinal tract R93.3 and Gastric intestinal metaplasia K31.A0 Assessments Encounter Date Diagnosis (ICD Code) Assessment Notes Treatment Notes Treatment Clinical Notes Section Notes 10/19/2025 Abn findings-GI tract (ICD-10 - R93.3) 10/19/2025 Chronic GERD (ICD-10 - K21.9) 09/30/2025 GERD (gastroesophageal reflux disease) (ICD-10 - K21.9) We discussed [...] This will be scheduled at his convenience. 10/22/2025 Gastric intestinal metaplasia (ICD-10 - K31.A0) 10/22/2025 Abnormal endoscopy of upper gastrointestinal tract (ICD-10 - R93.3) Plan Of Treatment Pending Test Test Name Order Date IRON + IBC (FE) 10/22/2025 FERRITIN 10/22/2025 CBC w/o DIFF 10/22/2025 CELIAC DISEASE ANTIBODY PANEL 10/22/2025 Complete Blood Count no Diff 11/17/2025 IRON PROFILE 11/17/2025 Ferritin 11/17/2025 Future Test Test Name Order Date COLONOSCOPY 10/09/2021 UPPER GI ENDOSCOPY 09/30/2025 UPPER GI ENDOSCOPY 10/22/2025 Next Appt Details Provider Name:Nicho karimi , 04/26/2026 07:30:00 AM, [address] [place] [address] , [place], [place], [phone], Insurance Providers Payer Name Payer Address Payer Phone Subscriber Number Group Number Insured Name Patient Relationship to Insured Coverage Start Date Coverage End Date [facility] [address] [address] [place], [place] [id number] TATE SAWN Self - patient is the insured Medical (General) History Medical History History ICD Code Anxiety Leukopenia Gastroesophageal reflux disease Rectal pain Fibromyalgia Colonoscopy 11/21, normal in cluding biopsies of the terminal ileum and sigmoid, 10-year follow-up. Surgical History Surgery Date(Month/Year)
--- OUTSIDE RECORDS SUMMARY | 2025-11-17 15:43 | XMS_ITS | Clinical Summary ---
Author Organization [facility] Address [address] [address] Phone Care Team Providers Care Anode Machine Operator Name Role Phone Lala Parada MD Primary Care Provider [phone] Allergies Active Allergy Reactions Criticality Noted Date [...] topic Medical Devices Not on [place] [place] [address] NON NSPG PCP [employer] [facility] NON NSPG PCP [employer] NON NSPG PCP [employer] NON NSPG PCP [employer] NON NSPG PCP [employer] NON NSPG PCP [employer] Care Teams Anode Machine Operator Relationship Specialty Start Date End Date Lala Parada MD [address] [place] [address] [address] [place] [phone] PCP - General 06/12/19 Additional Source Comments The information contained in this document represents components of the legal health record. It is not the complete legal health record.[facility]
--- OUTSIDE RECORDS SUMMARY | 2025-11-17 15:43 | XMS_ITS | Encounter Summary ---
Author Organization [facility] Address [address] [place] [address] Phone Care Team Providers Care Cellophane Bath Mixer Name Role Phone Lala Parada MD Primary Care Provider [phone] Reason for Referral * Speech Therapy (Routine) - Closed Specialty Diagnoses / Procedures Referred By Contac t Referred To Contact Speech Pathology Diagnoses Encounter for rehabilitation Shahram Hazel MD Phone: tel: fax: [facility] [address] [place] [address] Phone: tel: Referral ID Status Reason Start Date Expiration Date Visits Re quested Visits Authorized [id number] Closed 06/09/2019 12/01/2020 6 6 Encounter Details Date Type Department Care Team (Latest Contact Info) Description 06/09/2019 Transcribe Orders [facility] [address] [place] [address] Shahram Hazel MD 15 [facility] [address] [place] [phone] Encounter for rehabilitation (Primary Dx) Social History [...] Diagnoses Orde r Schedule Ambulatory referral to [facility] Speech Language Pathology Outpatient Referral Routine Encounter for rehabilitation Ordered: 06/09/2019 documented as of this encounter Visit Diagnoses Diagnosis Encounter for rehabilitation- Primary documented in this encounter Care Teams Cellophane Bath Mixer Relationship Specialty Start Date End Date Lala Parada MD [address] [place] [address] PCP - General 06/12/19 documented as of this encounter Additional Source Comments The information contained in this document represents components of the legal health record. It is not the complete legal health record.[facility]
--- OUTSIDE RECORDS SUMMARY | 2025-11-17 15:43 | XMS_ITS | Patient Health Record ---
Author Organization [facility] [place] Address [address] [place] [address] Care Team Providers Care Software Engineer Web Services Name Role Phone Lala Parada Primary Care Provider Unavailkarri e Destiny Hurt Unavailable [phone] Allergies Allergen (clinical drug ingredient) Drug/Non Drug [...] Problem Neoplasm of uncertain behavior of skin (75643974) Neoplasm of uncertain behavior of skin (238.2) Active confirmed Problem Pain in limb (22558189) Pain in Limb (729.5) Active confirmed Problem Hammer toe (641649715) Hammer toe (735.4) Active confirmed Plan Of Treatment Pending Test Test Name Order Date [id number]-Pyhf Destruction, -03/10/2013 48821-Pqui Destruction, -03/30/2013 19413-Gscv Destruction, 12-1505/01/2013 87322-Vrml Destruction, -05/14/2013 38013- Biopsy of skin lesion 02/23/2013 Insurance Providers Payer Name Payer Address Payer Phone Subscriber Number Group Number Insured Name Patient Relationship to Insured Coverage Start Date Coverage End Date [facility] [address] [place] [id number] Pradip Dong Self - patient is the insured Medical (General) History Medical History History ICD Code chicken pox
== END 2025-11-17 11:48 | disposition home or self-care (01) ==
LOC: HO.LAB 11:47
PROVIDERS: PCP Internal Medicine; Visit Provider Internal Medicine Gastroenterology
DX: R93.3 Abnormal findings on diagnostic imaging of other parts of digestive tract (principal); K31.A0 Gastric intestinal metaplasia, unspecified
CPT/HCPCS: 36415; 82728; 82784; 83540; 85027; 86364